=== PATIENT | female | born 1940 | race Caucasian/White ===

== ENCOUNTER 2018-10-31 11:48 | Inpatient (IN) | payer MEDICARE, BC ==
--- NOTE | 2018-10-31 12:14 | EDM.PDOC ---
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 Troponin was at he clinic 0.02. Pt received at the clinic a full ASA. Pt rated her CP as 2/10 on arrival to the ED. Her pain was mainly located at her left upper back. No Trauma. Pt's baseline BP is 150/65. No N/V/D no light headed no other No diaphoresis on arrival to the ed. No other acute med issues. BP 132/42 RR 20 Pulse ox 97% on RA Pulse 63 Temp 36.8 Onset Date: 10/31/18 Onset Time: 07:00 Duration: Hour(s):, Intermittent Location: Reports: Chest Quality: Reports: Ache, Burning, Dull Severity: Moderate Improves with: Reports: Rest Worsens with: Reports: None Context: Reports: Other (CAD) Associated Symptoms: Reports: Chest Pain (left upper back) Treatments PRIZE COORDINATOR: Reports: Aspirin Midsternal chest & L upper back Pain Score (Numeric/FACES): 2 - Related Data Allergies Allergy/AdvReac Type Severity Reaction Status Date / Time JOLENE Inhibitors Allergy Wheezing Verified 10/31/18 16:31 alcohol Allergy Nausea Verified 10/31/18 16:31 amlodipine [From Norvasc] Allergy Edema Verified 10/31/18 16:31 bee venom protein (honey bee) Allergy Other Verified 10/31/18 16:31 brimonidine Allergy Other Verified 10/31/18 16:31 cephalexin [From Keflex] Allergy Rash Verified 10/31/18 16:31 hydrocodone Allergy Other Verified 10/31/18 16:31 iodine Allergy Cannot Verified 10/31/18 16:31 Remember nadolol Allergy Wheezing Verified 10/31/18 16:31 olmesartan [From Benicar] Allergy Hives Verified 10/31/18 16:31 prednisone Allergy Edema Verified 10/31/18 16:31 Sulfa (Sulfonamide Allergy Rash Verified 10/31/18 16:31 Antibiotics) triamcinolone [From Nasacort] Allergy Cannot Verified 10/31/18 16:31 Remember Home Meds: Home Meds Albuterol Sulfate [Albuterol Sulfate Hfa] 2 puff IH QID PRN 10/31/18 [History] Diltiazem HCl [Cartia Xt] 180 mg PO BID 10/31/18 [History] Furosemide 40 mg PO DAILY 10/31/18 [History] Isosorbide Mononitrate [Imdur] 60 mg PO DAILY 10/31/18 [History] Levocetirizine Dihydrochloride 5 mg PO BEDTIME 10/31/18 [History] Levothyroxine 75 mcg PO ACBREAKFAST 10/31/18 [History] Lutein/Minerals/Vit A,C & E [Ocuvite] 2 tab PO DAILY 10/31/18 [History] Nitroglycerin [Nitrostat] 0.4 mg SL ASDIRECTED PRN 10/31/18 [History] diphenhydrAMINE [Benadryl] 25 mg PO Q4H PRN 10/31/18 [History] hydrALAZINE [Apresoline] 50 mg PO BID 10/31/18 [History] ED ROS GENERAL - Review of Systems Review Of Systems: See Below Constitutional: Reports: No Symptoms HEENT: Reports: No Symptoms Respiratory: Reports: No Symptoms Cardiovascular: Reports: Chest Pain Endocrine: Reports: No Symptoms GI/Abdominal: Reports: No Symptoms : Reports: No Symptoms Musculoskeletal: Reports: Back Pain Skin: Reports: No Symptoms Neurological: Reports: No Symptoms Psychiatric: Reports: No Symptoms Hematologic/Lymphatic: Reports: No Symptoms Immunologic: Reports: No Symptoms ED EXAM, GENERAL - Physical Exam Exam: See Below Exam Limited By: No Limitations General Appearance: Alert, WD/WN, Mild Distress Eye Exam: Bilateral Eye: Normal Inspection Ears: Normal External Exam Ear Exam: Bilateral Ear: Auricle Normal Nose: Normal Inspection, Normal Mucosa, No Blood Throat/Mouth: Normal Lips, Normal Voice, No Airway Compromise Head: Atraumatic, Normocephalic Neck: Normal Inspection, Supple, Non-Tender, Full Range of Motion Respiratory/Chest: No Respiratory Distress, Decreased Breath Sounds (poor isp effort) Cardiovascular: Normal Peripheral Pulses, Regular Rate, Rhythm, No JVD Peripheral Pulses: 1+: Brachial (L) GI/Abdominal: Normal Bowel Sounds, Soft, Non-Tender, No Organomegaly, No Abnormal Bruit, No Mass, Pelvis Stable (Female) Exam: Deferred Rectal (Female) Exam: Deferred Back Exam: Other (kyphosis ) Extremities: Normal Inspection, Normal Range of Motion, Non-Tender Neurological: Alert, Oriented, CN II-XII Intact, Normal Cognition Psychiatric: Normal Affect, Normal Mood Skin Exam: Warm, Dry Lymphatic: No Adenopathy EKG INTERPRETATION EKG Date: 10/31/18 Time: 11:55 Rhythm: NSR Rate (Beats/Min): 74 [place]: Normal P-Wave: Present QRS: Normal ST-T: Depressed (inf lat leads, not new) QT: Normal Comparison: Change From Previous EKG (from 2017) Course - Vital Signs Text/Narrative:: 78 y.o.w.f with a H/O CAD, Fixed Hiatal Hernia, 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 Troponin was at he clinic 0.02. Pt received at the clinic a full ASA. Pt rated her CP as 2/10 on arrival to the ED. Her pain was mainly located at her left upper back. No Trauma. Pt's baseline BP is 150/65. No N/V/D no light headed no other No diaphoresis on arrival to the ed. No other acute med issues. BP 132/42 RR 20 Pulse ox 97% on RA Pulse 63 Temp 36.8 PE: WNWD WD F in no acute discomfort C/P 2/10 no diaphoresis Imaging: CXR 2 views: Enlarged heart, fixed hiatal hernia (?), COPD,CHF minimal , as per RAD. Angio Chest: NO PE, mild enlarged heart, fixed hiatal hernia. Labs" D Dimer 0.69 Troponin 0.02 initially and 3 hours later. CBC nl Cr. 1.3 GFR 40 Impression: Chest pain, Fixed Hiatal Hernia, back pain Tx: ASA, Nitropatch Reexam: Improved 3.50 pm Consultation: Dr. Ny, Hospitalist: Accepted pt for admission Last Recorded V/S: Last Vital Signs Temp 36.6 C 11/01/18 04:00 Pulse 71 11/01/18 04:00 Resp 16 11/01/18 04:00 BP 138/53 L 11/01/18 04:00 Pulse Ox 93 L 11/01/18 04:36 - Orders/Labs/Meds Orders: Active Orders 24 hr Category Date Time Status EKG Documentation Completion [RC] ASDIRECTED Care 10/31/18 14:25 Active Ang Chest [CT] Stat Exams 10/31/18 14:30 Taken Sodium Chloride 0.9% [Saline Flush] Med 10/31/18 12:56 Active 10 ml FLUSH ASDIRECTED PRN Peripheral IV Insertion Adult [OM.PC] Routine Oth 10/31/18 12:56 Ordered EKG 12 Lead [EK] Routine Ther 10/31/18 12:05 Ordered EKG 12 Lead [EK] Routine Ther 10/31/18 14:25 Ordered Medication Orders Albuterol/Ipratropium (Duoneb 3.0-0.5 Mg/3 Ml) 3 ml NEB Q8H REYNA Last Admin: 11/01/18 04:17 Dose: 3 ml Admin: 10/31/18 21:15 Dose: 3 ml Albuterol/Ipratropium (Duoneb 3.0-0.5 Mg/3 Ml) 3 ml NEB Q4H PRN PRN Reason: Shortness of Breath Diltiazem HCl (Cardizem Cd) 180 mg PO BID [facility] Last Admin: 10/31/18 21:19 Dose: 180 mg Furosemide (Lasix) 40 mg PO DAILY [facility] Hydralazine HCl (Apresoline) 50 mg PO BID [facility] Last Admin: 10/31/18 21:19 Dose: Not Given Levothyroxine Sodium (Levothyroxine) 75 mcg PO ACBREAKFAST [facility] Morphine Sulfate (Morphine) 1 mg IVPUSH Q4H PRN PRN Reason: Chest Pain Non-Formulary Medication (Levocetirizine Dihydrochloride [Levocetirizine Dihydrochloride]) 5 mg PO BEDTIME [facility] Pantoprazole Sodium (Protonix Iv) 40 mg IVPUSH BEDTIME [facility] Last Admin: 10/31/18 21:20 Dose: 40 mg Sodium Chloride (Saline Flush) 10 ml FLUSH ASDIRECTED PRN PRN Reason: Keep Vein Open Last Admin: 10/31/18 21:34 Dose: 10 ml Admin: 10/31/18 12:50 Dose: 10 ml Vit C/Vit E/Zinc/Copper/Lutein (Ocuvite Lutein) 2 each PO DAILY REYNA Labs: Laboratory Tests 10/31/18 10/31/18 10/31/18 Range/Units 12:35 12:35 12:35 WBC 9.1 (4.5-12.0) X10-3/uL RBC 4.82 (3.23-5.20) x10(6)uL Hgb 14.2 (11.5-15.5) g/dL Hct 42.4 (30.0-51.3) % MCV 87.9 (80-96) fL MCH 29.5 (27.7-33.6) pg MCHC 33.6 (32.2-35.4) g/dL RDW 13.6 (11.5-15.5) % Plt Count 339 (125-369) X10(3)uL MPV 7.8 (7.4-10.4) fL Neut % (Auto) 79.9 (46-82) % Lymph % (Auto) 13.3 (13-37) % [place] % (Auto) 5.5 (4-12) % Eos % (Auto) 1 (1.0-5.0) % Baso % (Auto) 0 (0-2) % Neut # (Auto) 7.3 (1.6-8.3) # Lymph # (Auto) 1.2 (0.6-5.0) # [place] # (Auto) 0.5 (0.0-1.3) # Eos # (Auto) 0.1 (0.0-0.8) # Baso # (Auto) 0.0 (0.0-0.2) # PT (8.7-11.1) INR (0.89-1.13) D-Dimer, Quantitative 0.61 H (0.0-0.59) mg/LFEU Sodium 142 (135-145) mmol/L Potassium 3.6 (3.5-5.3) mmol/L Chloride 103 (100-110) mmol/L Carbon Dioxide 28 (21-32) mmol/L BUN 21 H (7-18) mg/dL Creatinine 1.3 H (0.55-1.02) mg/dL Est Cr Clr Drug Dosing 26.03 mL/min Estimated GFR (MDRD) 40 L (>60) BUN/Creatinine Ratio 16.2 (9-20) Glucose 104 (80-116) mg/dL Calcium 9.4 (8.6-10.2) mg/dL Creatine Kinase 124 (60-160) IU/L Troponin I (<0.017-0.056) ng/mL Urine Color (YELLOW) Urine Appearance (CLEAR) Urine pH (5.0-6.5) Ur Specific [place] (1.010-1.025) Urine Protein (NEGATIVE) mg/dL Urine Glucose (UA) (NORMAL) mg/dL Urine Ketones (NEGATIVE) mg/dL Urine Occult Blood (NEGATIVE) Urine Nitrite (NEGATIVE) Urine Bilirubin (NEGATIVE) Urine Urobilinogen (NEGATIVE) mg/dL Ur Leukocyte Esterase (NEGATIVE) Urine RBC (0-5) Urine WBC (0-5) Ur Squamous Epith Cells (NS,R,O) Urine Bacteria (NS) Hyaline Casts (NS) 10/31/18 10/31/18 10/31/18 Range/Units 13:30 14:28 14:28 WBC (4.5-12.0) X10-3/uL RBC (3.23-5.20) x10(6)uL Hgb (11.5-15.5) g/dL Hct (30.0-51.3) % MCV (80-96) fL MCH (27.7-33.6) pg MCHC (32.2-35.4) g/dL RDW (11.5-15.5) % Plt Count (125-369) X10(3)uL MPV (7.4-10.4) fL Neut % (Auto) (46-82) % Lymph % (Auto) (13-37) % [place] % (Auto) (4-12) % Eos % (Auto) (1.0-5.0) % Baso % (Auto) (0-2) % Neut # (Auto) (1.6-8.3) # Lymph # (Auto) (0.6-5.0) # Kern # (Auto) (0.0-1.3) # Eos # (Auto) (0.0-0.8) # Baso # (Auto) (0.0-0.2) # PT 9.3 (8.7-11.1) INR 0.96 (0.89-1.13) D-Dimer, Quantitative (0.0-0.59) mg/LFEU Sodium (135-145) mmol/L Potassium (3.5-5.3) mmol/L Chloride (100-110) mmol/L Carbon Dioxide (21-32) mmol/L BUN (7-18) mg/dL Creatinine (0.55-1.02) mg/dL Est Cr Clr Drug Dosing mL/min Estimated GFR (MDRD) (>60) BUN/Creatinine Ratio (9-20) Glucose (80-116) mg/dL Calcium (8.6-10.2) mg/dL Creatine Kinase (60-160) IU/L Troponin I 0.020 (<0.017-0.056) ng/mL Urine Color Yellow (YELLOW) Urine Appearance Clear (CLEAR) Urine pH 6.0 (5.0-6.5) Ur Specific [place] 1.010 (1.010-1.025) Urine Protein Negative (NEGATIVE) mg/dL Urine Glucose (UA) Normal (NORMAL) mg/dL Urine Ketones Negative (NEGATIVE) mg/dL Urine Occult Blood Negative (NEGATIVE) Urine Nitrite Negative (NEGATIVE) Urine Bilirubin Negative (NEGATIVE) Urine Urobilinogen Normal (NEGATIVE) mg/dL Ur Leukocyte Esterase Negative (NEGATIVE) Urine RBC 0-5 (0-5) Urine WBC 0-5 (0-5) Ur Squamous Epith Cells Few H (NS,R,O) Urine Bacteria Few H (NS) Hyaline Casts Occasional H (NS) Meds: Medications Generic Name Dose Route Start Last Admin Trade Name Freq PRN Reason Stop Dose Admin Albuterol/Ipratropium 3 ml 10/31/18 20:30 11/01/18 04:17 Duoneb 3.0-0.5 Mg/3 Ml NEB 3 ml Q8H REYNA Administration Albuterol/Ipratropium 3 ml 10/31/18 20:41 Duoneb 3.0-0.5 Mg/3 Ml NEB Q4H PRN Shortness of Breath Diltiazem HCl 180 mg 10/31/18 21:00 10/31/18 21:19 Cardizem Cd PO 180 mg BID REYNA Administration Furosemide 40 mg 11/01/18 09:00 Lasix PO DAILY REYNA Hydralazine HCl 50 mg 10/31/18 21:00 10/31/18 21:19 Apresoline PO Not Given BID REYNA Levothyroxine Sodium 75 mcg 11/01/18 07:30 Levothyroxine PO ACBREAKFAST REYNA Morphine Sulfate 1 mg 10/31/18 20:23 Morphine IVPUSH Q4H PRN Chest Pain Non-Formulary Medication 5 mg 10/31/18 21:00 Levocetirizine Dihydrochloride [Levocetirizine Dihydrochloride] PO BEDTIME REYNA Pantoprazole Sodium 40 mg 10/31/18 21:00 10/31/18 21:20 Protonix Iv IVPUSH 40 mg BEDTIME REYNA Administration Sodium Chloride 10 ml 10/31/18 12:56 10/31/18 21:34 Saline Flush FLUSH 10 ml ASDIRECTED PRN Administration Keep Vein Open Vit C/Vit E/Zinc/Copper/Lutein 2 each 11/01/18 09:00 Ocuvite Lutein PO DAILY REYNA Discontinued Medications Generic Name Dose Route Start Last Admin Trade Name Freq PRN Reason Stop Dose Admin Diltiazem HCl Confirm 10/31/18 20:58 10/31/18 21:19 Cardizem Cd Administered 10/31/18 20:59 Not Given Dose 180 mg .ROUTE .STK-MED ONE Hydralazine HCl Confirm 10/31/18 20:58 10/31/18 21:16 Apresoline Administered 10/31/18 20:59 50 mg Dose Administration 50 mg .ROUTE .STK-MED ONE Iopamidol 75 ml 10/31/18 14:35 10/31/18 14:51 Isovue-370 (76%) IV 10/31/18 14:36 62 ml ASDIRECTED ONE Administration Ketorolac Tromethamine 15 mg 10/31/18 12:38 10/31/18 12:50 Toradol IVPUSH 10/31/18 12:39 15 mg ONETIME ONE Administration Nitroglycerin 0.2 mg 10/31/18 14:14 10/31/18 14:43 Nitro-Dur 0.2 Mg/Hr TRDERM 10/31/18 14:15 0.2 mg ONETIME ONE Administration Departure - Departure Time of Disposition: 19:00 Disposition: Admitted As Inpatient 67 Condition: Fair Clinical Impression: Chest pain Qualifiers: Chest pain type: intercostal pain Qualified Code(s): R07.82 - Intercostal pain - My Orders Last 24 Hours: My Active Orders 10/31/18 12:05 EKG 12 Lead [EK] Routine 10/31/18 12:56 Sodium Chloride 0.9% [Saline Flush] 10 ml FLUSH ASDIRECTED PRN Peripheral IV Insertion Adult [OM.PC] Routine 10/31/18 14:25 EKG Documentation Completion [RC] ASDIRECTED EKG 12 Lead [EK] Routine 10/31/18 14:30 Ang Chest [CT] Stat - Assessment/Plan Last 24 Hours: My Active Orders 10/31/18 12:05 EKG 12 Lead [EK] Routine 10/31/18 12:56 Sodium Chloride 0.9% [Saline Flush] 10 ml FLUSH ASDIRECTED PRN Peripheral IV Insertion Adult [OM.PC] Routine 10/31/18 14:25 EKG Documentation Completion [RC] ASDIRECTED EKG 12 Lead [EK] Routine 10/31/18 14:30 Ang Chest [CT] Stat
[2018-10-31] MEDS ORDERED: Ketorolac 30 MG/ML SDV IVPUSH ONE (12:38)
[2018-10-31] MEDS: Sodium Chloride 0.9% 10 ML Syringe FLUSH PRN ×2 (12:50→21:34)
[2018-10-31] MEDS ORDERED: Nitroglycerin 0.2 MG/HR Transdermal Patch TRDERM ONE (14:14)
[2018-10-31] MEDS ORDERED: Iopamidol 755 Mg/ML 75 ML Bottle IV ONE (14:35)
--- NOTE | 2018-10-31 15:06 | CR ---
INDICATION: Chest pain. CHEST: PA and lateral views of the chest were obtained 10/31/18 and compared with 12/09/10 and 09/02/08. The heart appears mildly enlarged with mild LVE. Evidence of previous median sternotomy is again noted. The aorta is tortuous with calcification in the arch and descending portion. Degenerative changes are noted of moderate degree at the lower thoracic spine level. Flattened diaphragm leaves, prominent AP diameter, and hyperaeration all suggest COPD. Upper lung field pulmonary vasculature is minimally prominent, raising question of minimal or early CHF. An active infiltrate or effusion was not identified. There is an appearance of a mass behind the heart, which may be on the basis of a moderate to moderately large sized fixed hiatal hernia - correlate clinically , as other etiology cannot be excluded. IMPRESSION: 1. No acute process. 2. ASHD with cardiomegaly - LVE with post median sternotomy change. 3. Probable COPD - correlate clinically. 4. Limited DJD lower thoracic spine. 5. Mass behind the heart, most likely fixed hiatal hernia but cannot exclude aneurysm of the aorta or other mass. MTDD
[2018-10-31] MEDS ORDERED: Morphine 2 MG/ML Syringe IVPUSH PRN (20:23)
--- NOTE | 2018-10-31 20:30 | PCM.HP ---
H&P History of Present Illness - General Date of Service: 10/31/18 Admit Problem/Dx: Admission Diagnosis/Problem Admission Diagnosis/Problem Chest pain Source of Information: Patient History Limitations: Reports: No Limitations - History of Present Illness Initial Comments - Free Text/Narative: Ms. Sanchez is a 78-year-old female with upper back pain. This started this morning ,and is located around the left breast with radiation straight to the left upper back. Sharp pain,and is associated shortness of breath.Nothing seems to help except, nitroglycerin which she got earlier in the clinic today when she saw Dr white. She has a history of coronary artery disease with the CABG 10 years ago. Also endorses Asthma, hypothyroidism and hypertension,all stable. She denies cough fever or chills. No nausea or vomiting. Midsternal chest & L upper back Pain Score (Numeric/FACES): 2 - Related Data Allergies/Adverse Reactions: Allergies Allergy/AdvReac Type Severity Reaction Status Date / Time JOLENE Inhibitors Allergy Wheezing Verified 10/31/18 16:31 alcohol Allergy Nausea Verified 10/31/18 16:31 amlodipine [From Norvasc] Allergy Edema Verified 10/31/18 16:31 bee venom protein (honey bee) Allergy Other Verified 10/31/18 16:31 brimonidine Allergy Other Verified 10/31/18 16:31 cephalexin [From Keflex] Allergy Rash Verified 10/31/18 16:31 hydrocodone Allergy Other Verified 10/31/18 16:31 iodine Allergy Cannot Verified 10/31/18 16:31 Remember nadolol Allergy Wheezing Verified 10/31/18 16:31 olmesartan [From Benicar] Allergy Hives Verified 10/31/18 16:31 prednisone Allergy Edema Verified 10/31/18 16:31 Sulfa (Sulfonamide Allergy Rash Verified 10/31/18 16:31 Antibiotics) triamcinolone [From Nasacort] Allergy Cannot Verified 10/31/18 16:31 Remember Home Medications: Home Meds Albuterol Sulfate [Albuterol Sulfate Hfa] 2 puff IH QID PRN 10/31/18 [History] Diltiazem HCl [Cartia Xt] 180 mg PO BID 10/31/18 [History] Furosemide 40 mg PO DAILY 10/31/18 [History] Isosorbide Mononitrate [Imdur] 60 mg PO DAILY 10/31/18 [History] Levocetirizine Dihydrochloride 5 mg PO BEDTIME 10/31/18 [History] Levothyroxine 75 mcg PO ACBREAKFAST 10/31/18 [History] Lutein/Minerals/Vit A,C & E [Ocuvite] 2 tab PO DAILY 10/31/18 [History] Nitroglycerin [Nitrostat] 0.4 mg SL ASDIRECTED PRN 10/31/18 [History] diphenhydrAMINE [Benadryl] 25 mg PO Q4H PRN 10/31/18 [History] hydrALAZINE [Apresoline] 50 mg PO BID 10/31/18 [History] Past Medical History HEENT History: Reports: Glaucoma, Macular Degeneration, Other (See Below) Other HEENT History: injections into L eye for mac degen. Cardiovascular History: Reports: Bypass, CAD, Hypertension, [place] Other Cardiovascular History: 4 vessel CABG Respiratory History: Reports: Asthma, COPD, Sleep Apnea Other Respiratory History: uses CPAP Gastrointestinal History: Reports: Hiatal Hernia Genitourinary History: Reports: Renal Disease [employer] History: Reports: Other OB/BYN History: Musculoskeletal History: Reports: Arthritis Endocrine/Metabolic History: Reports: Hypothyroidism, Obesity/BMI 30+ Hematologic History: Reports: Blood Transfusion(s) Dermatologic History: Reports: Other (See Below) Other Dermatologic History: chalazioun L upper eyelid. - Infectious Disease History Infectious Disease History: Reports: Chicken Pox, Measles - Past Surgical History HEENT Surgical History: Reports: Adenoidectomy, Cataract Surgery, Tonsillectomy Other HEENT Surgeries/Procedures: bilat cataract Cardiovascular Surgical History: Reports: Coronary Artery Bypass GI Surgical History: Reports: Colonoscopy Female Surgical History: Reports: Section Other Female Surgeries/Procedures: CS x 3 Endocrine Surgical History: Reports: Parathyroidectomy Musculoskeletal Surgical History: Reports: None Social & Family History - Family History Family Medical History: Noncontributory - Tobacco Use Smoking Status *Q: Former Smoker Years of Tobacco use: 45 Used Tobacco, but Quit: Yes Month/Year Tobacco Last Used: 2003 Second Hand Smoke Exposure: No - Caffeine Use Caffeine Use: Reports: Coffee - Recreational Drug Use Recreational Drug Use: No H&P Review of Systems - Review of Systems: Review Of Systems: ROS reveals no pertinent complaints other than HPI. Exam - Exam Exam: See Below - Vital Signs Vital Signs: Last Vital Signs Temp 97.6 F 10/31/18 11:48 Pulse 65 10/31/18 16:00 Resp 18 10/31/18 16:00 BP 181/66 H 10/31/18 16:00 Pulse Ox 94 L 10/31/18 16:06 Weight: 67.857 kg - Exam General: Alert, Oriented, 4 HEENT: PERRLA, Hearing Intact, Mucosa Moist & [place], Nares Patent, Normal Nasal Septum, Posterior Pharynx Clear, Conjunctiva Clear, EOMI, EACs Clear, TMs Clear Neck: Supple, Trachea Midline, 2 Lungs: Clear to Auscultation, Normal Respiratory Effort Cardiovascular: Regular Rate, Regular Rhythm GI/Abdominal Exam: Normal Bowel Sounds, Soft, Non-Tender, No Organomegaly, No Distention, No Abnormal Bruit, No Mass, Pelvis Stable (Female) Exam: Deferred Rectal (Female) Exam: Deferred Back Exam: Normal Inspection, Full Range of Motion, NT Extremities: Normal Inspection, Normal Range of Motion, Non-Tender, No Pedal Edema, Normal Capillary Refill Skin: Warm, Dry, Intact Neurological: Cranial Nerves Intact, Reflexes Equal Bilateral Neuro Extensive - Mental Status: Alert, Oriented x3, Normal Mood/Affect, Normal Cognition Neuro Extensive - Motor, Sensory, Reflexes: CN II-XII Intact, Normal Gait, Normal Reflexes Psychiatric: Alert, Normal Affect, Normal Mood - Patient Data Lab Results Last 24 hrs: Laboratory Results - last 24 hr 10/31/18 10/31/18 10/31/18 Range/Units 12:35 12:35 12:35 WBC 9.1 (4.5-12.0) X10-3/uL RBC 4.82 (3.23-5.20) x10(6)uL Hgb 14.2 (11.5-15.5) g/dL Hct 42.4 (30.0-51.3) % MCV 87.9 (80-96) fL MCH 29.5 (27.7-33.6) pg MCHC 33.6 (32.2-35.4) g/dL RDW 13.6 (11.5-15.5) % Plt Count 339 (125-369) X10(3)uL MPV 7.8 (7.4-10.4) fL Neut % (Auto) 79.9 (46-82) % Lymph % (Auto) 13.3 (13-37) % [place] % (Auto) 5.5 (4-12) % Eos % (Auto) 1 (1.0-5.0) % Baso % (Auto) 0 (0-2) % Neut # (Auto) 7.3 (1.6-8.3) # Lymph # (Auto) 1.2 (0.6-5.0) # Trinity # (Auto) 0.5 (0.0-1.3) # Eos # (Auto) 0.1 (0.0-0.8) # Baso # (Auto) 0.0 (0.0-0.2) # PT (8.7-11.1) INR (0.89-1.13) D-Dimer, Quantitative 0.61 H (0.0-0.59) mg/LFEU Sodium 142 (135-145) mmol/L Potassium 3.6 (3.5-5.3) mmol/L Chloride 103 (100-110) mmol/L Carbon Dioxide 28 (21-32) mmol/L BUN 21 H (7-18) mg/dL Creatinine 1.3 H (0.55-1.02) mg/dL Est Cr Clr Drug Dosing 26.03 mL/min Estimated GFR (MDRD) 40 L (>60) BUN/Creatinine Ratio 16.2 (9-20) Glucose 104 (80-116) mg/dL Calcium 9.4 (8.6-10.2) mg/dL Creatine Kinase 124 (60-160) IU/L Troponin I (<0.017-0.056) ng/mL Urine Color (YELLOW) Urine Appearance (CLEAR) Urine pH (5.0-6.5) Ur Specific [place] (1.010-1.025) Urine Protein (NEGATIVE) mg/dL Urine Glucose (UA) (NORMAL) mg/dL Urine Ketones (NEGATIVE) mg/dL Urine Occult Blood (NEGATIVE) Urine Nitrite (NEGATIVE) Urine Bilirubin (NEGATIVE) Urine Urobilinogen (NEGATIVE) mg/dL Ur Leukocyte Esterase (NEGATIVE) Urine RBC (0-5) Urine WBC (0-5) Ur Squamous Epith Cells (NS,R,O) Urine Bacteria (NS) Hyaline Casts (NS) 10/31/18 10/31/18 10/31/18 Range/Units 13:30 14:28 14:28 WBC (4.5-12.0) X10-3/uL RBC (3.23-5.20) x10(6)uL Hgb (11.5-15.5) g/dL Hct (30.0-51.3) % MCV (80-96) fL MCH (27.7-33.6) pg MCHC (32.2-35.4) g/dL RDW (11.5-15.5) % Plt Count (125-369) X10(3)uL MPV (7.4-10.4) fL Neut % (Auto) (46-82) % Lymph % (Auto) (13-37) % [place] % (Auto) (4-12) % Eos % (Auto) (1.0-5.0) % Baso % (Auto) (0-2) % Neut # (Auto) (1.6-8.3) # Lymph # (Auto) (0.6-5.0) # Trinity # (Auto) (0.0-1.3) # Eos # (Auto) (0.0-0.8) # Baso # (Auto) (0.0-0.2) # PT 9.3 (8.7-11.1) INR 0.96 (0.89-1.13) D-Dimer, Quantitative (0.0-0.59) mg/LFEU Sodium (135-145) mmol/L Potassium (3.5-5.3) mmol/L Chloride (100-110) mmol/L Carbon Dioxide (21-32) mmol/L BUN (7-18) mg/dL Creatinine (0.55-1.02) mg/dL Est Cr Clr Drug Dosing mL/min Estimated GFR (MDRD) (>60) BUN/Creatinine Ratio (9-20) Glucose (80-116) mg/dL Calcium (8.6-10.2) mg/dL Creatine Kinase (60-160) IU/L Troponin I 0.020 (<0.017-0.056) ng/mL Urine Color Yellow (YELLOW) Urine Appearance Clear (CLEAR) Urine pH 6.0 (5.0-6.5) Ur Specific [place] 1.010 (1.010-1.025) Urine Protein Negative (NEGATIVE) mg/dL Urine Glucose (UA) Normal (NORMAL) mg/dL Urine Ketones Negative (NEGATIVE) mg/dL Urine Occult Blood Negative (NEGATIVE) Urine Nitrite Negative (NEGATIVE) Urine Bilirubin Negative (NEGATIVE) Urine Urobilinogen Normal (NEGATIVE) mg/dL Ur Leukocyte Esterase Negative (NEGATIVE) Urine RBC 0-5 (0-5) Urine WBC 0-5 (0-5) Ur Squamous Epith Cells Few H (NS,R,O) Urine Bacteria Few H (NS) Hyaline Casts Occasional H (NS) Result Diagrams: 10/31/18 12:35 10/31/18 12:35 EKG INTERPRETATION Rhythm: NSR - Problem List (1) Chest pain SNOMED Code(s): 81915602 ICD Code: R07.9 - CHEST PAIN, UNSPECIFIED Status: Acute Current Visit: Yes Qualifiers: Chest pain type: intercostal pain Qualified Code(s): R07.82 - Intercostal pain (2) GERD (gastroesophageal reflux disease) SNOMED Code(s): 975130130 ICD Code: K21.9 - GASTRO-ESOPHAGEAL REFLUX DISEASE WITHOUT ESOPHAGITIS Status: Acute Current Visit: Yes Qualifiers: Esophagitis presence: without esophagitis Qualified Code(s): K21.9 - Gastro -esophageal reflux disease without esophagitis (3) Asthma SNOMED Code(s): 711607235 ICD Code: J45.909 - UNSPECIFIED ASTHMA, UNCOMPLICATED Status: Acute Current Visit: Yes (4) HTN (hypertension) SNOMED Code(s): 86232159 ICD Code: I10 - ESSENTIAL (PRIMARY) HYPERTENSION Status: Chronic Current Visit: Yes Qualifiers: Hypertension type: essential hypertension Qualified Code(s): I10 - Essential (primary) hypertension (5) Hypothyroidism SNOMED Code(s): 80137008 ICD Code: E03.9 - HYPOTHYROIDISM, UNSPECIFIED Status: Chronic Current Visit: Yes (6) HLD (hyperlipidemia) SNOMED Code(s): 64407230 ICD Code: E78.5 - HYPERLIPIDEMIA, UNSPECIFIED Status: Acute Current Visit : Yes Qualifiers: Hyperlipidemia type: unspecified Qualified Code(s): E78.5 - Hyperlipidemia , unspecified Problem List Initiated/Reviewed/Updated: Yes Orders Last 24hrs: Active Orders 24 hr Category Date Time Status Patient Status [ADT] Routine ADT 10/31/18 16:06 Active Cardiac Monitoring [RC] INTERMITTENT Care 10/31/18 16:08 Active EKG Documentation Completion [RC] ASDIRECTED Care 10/31/18 12:06 Active EKG Documentation Completion [RC] ASDIRECTED Care 10/31/18 14:25 Active EKG Documentation Completion [RC] ASDIRECTED Care 10/31/18 20:22 Ordered Oxygen Therapy [RC] .PRN Care 10/31/18 16:06 Active RT Aerosol Therapy [RC] ASDIRECTED Care 10/31/18 20:22 Ordered VTE/DVT Education [RC] Per Unit Routine Care 10/31/18 16:06 Active Vital Signs [RC] 00,04,08,12,16,20 Care 10/31/18 16:06 Active Heart Healthy Diet [DIET] Diet 10/31/18 Breakfast Active Ang Chest [CT] Stat Exams 10/31/18 14:30 Taken BASIC METABOLIC PANEL,BMP [CHEM] AM Lab 11/01/18 05:11 Ordered CBC WITH AUTO DIFF [HEME] AM Lab 11/01/18 05:11 Ordered TROPONIN I [CHEM] AM Lab 11/01/18 05:11 Ordered Albuterol/Ipratropium [DuoNeb 3.0-0.5 MG/3 ML] Med 10/31/18 20:30 Ordered 3 ml NEB Q8H Diltiazem [Cardizem CD] Med 10/31/18 21:00 Ordered 180 mg PO BID Furosemide [Lasix] Med 11/01/18 09:00 Ordered 40 mg PO DAILY Levocetirizine Dihydrochloride [Levocetirizine Med 10/31/18 21:00 Ordered Dihydrochloride] 5 mg PO BEDTIME Levothyroxine Med 11/01/18 07:30 Ordered 75 mcg PO ACBREAKFAST Lutein/Minerals/Vit A,C & E [Ocuvite] Med 11/01/18 09:00 Ordered 2 tab PO DAILY Morphine Med 10/31/18 20:23 Ordered 1 mg IVPUSH Q4H PRN Pantoprazole [ProTONIX IV] Med 10/31/18 21:00 Ordered 40 mg IVPUSH BEDTIME Sodium Chloride 0.9% [Saline Flush] Med 10/31/18 12:56 Active 10 ml FLUSH ASDIRECTED PRN hydrALAZINE [Apresoline] Med 10/31/18 21:00 Ordered 50 mg PO BID Peripheral IV Insertion Adult [OM.PC] Routine Oth 10/31/18 12:56 Ordered Resuscitation Status Routine Resus Stat 10/31/18 16:06 Ordered EKG 12 Lead [EK] AM Ther 11/01/18 05:11 Ordered EKG 12 Lead [EK] Routine Ther 10/31/18 12:05 Ordered EKG 12 Lead [EK] Routine Ther 10/31/18 14:25 Ordered Medication Orders Albuterol/Ipratropium (Duoneb 3.0-0.5 Mg/3 Ml) 3 ml NEB Q8H REYNA Diltiazem HCl (Cardizem Cd) 180 mg PO BID REYNA Furosemide (Lasix) 40 mg PO DAILY REYNA Hydralazine HCl (Apresoline) 50 mg PO BID REYNA Levothyroxine Sodium (Levothyroxine) 75 mcg PO ACBREAKFAST REYNA Morphine Sulfate (Morphine) 1 mg IVPUSH Q4H PRN PRN Reason: Chest Pain Non-Formulary Medication (Levocetirizine Dihydrochloride [Levocetirizine Dihydrochloride]) 5 mg PO BEDTIME REYNA Non-Formulary Medication (Lutein/Minerals/Vit A,C & E [Ocuvite]) 2 tab PO DAILY REYNA Pantoprazole Sodium (Protonix Iv) 40 mg IVPUSH BEDTIME REYNA Sodium Chloride (Saline Flush) 10 ml FLUSH ASDIRECTED PRN PRN Reason: Keep Vein Open Last Admin: 10/31/18 12:50 Dose: 10 ml Assessment/Plan Comment:: Her CT was negative for PE. The pain is reproducible on palpation of the chest wall and upper back. But she also shortness of breath. The etiology at this time is unclear. We'll repeat labs in the morning, start DuoNeb when necessary and ketorolac as needed for pain.
[2018-10-31] MEDS ORDERED: Albuterol/Ipratropium 3.0-0.5 MG/3 ML Neb Soln NEB PRN (20:41)
[2018-10-31] MEDS ORDERED: hydrALAZINE 25 MG Tab ONE (20:58)
[2018-10-31] MEDS ORDERED: Diltiazem 180 MG Cap.CD ONE (20:58)
[2018-10-31] MEDS: Albuterol/Ipratropium 3.0-0.5 MG/3 ML Neb Soln NEB SCH (21:15)
[2018-10-31] MEDS: Diltiazem 180 MG Cap.CD PO SCH (21:19)
[2018-10-31] MEDS: hydrALAZINE 50 MG Tab PO SCH (21:19)
[2018-10-31] MEDS: Pantoprazole 40 MG Vial IVPUSH SCH (21:20)
[2018-11-01] MEDS: Albuterol/Ipratropium 3.0-0.5 MG/3 ML Neb Soln NEB SCH ×3 (04:17→20:29)
[2018-11-01] MEDS: Levothyroxine 75 MCG Tab PO SCH (07:35)
--- NOTE | 2018-11-01 08:25 | CT ---
INDICATION: Chest pain with D-dimer elevated. COMPUTERIZED TOMOGRAPHY ANGIOGRAPHY OF THE CHEST WITH CONTRAST: Spiral 3.75 mm axial sections were obtained through the chest with sagittal and coronal reconstructions, utilizing 62 mL Isovue 370 at 3 mL/second, 10/31/18 - no comparisons. Total exam DLP = 348.65 mGy-cm. Calcifications are noted in brachiocephalic vessels, the arch of the aorta, the ascending thoracic aorta, and minimally in coronary arteries. The heart was not enlarged. No pericardial effusion was seen. No mediastinal masses were identified. Mediastinal lymphadenopathy is mild and nonspecific. A moderate sized fixed hiatal hernia is noted. Calcifications are also noted in the splenic artery, origin of celiac axis, superior mesenteric artery, and renal arteries, especially on the left. There are some heavy markings at the lingula, suggesting fibrosis or possibly an area of subsegmental atelectasis. A definite active infiltrate or effusion was not identified with very minimal fibrotic appearing changes at the lung base , right and left, more prominent on the left. Contrast density in the pulmonary arteries is less than ideal. However, no definite filling defects to suggest pulmonary emboli could be identified. IMPRESSION: 1. No evidence of pulmonary emboli or other definite acute process. 2. Moderately large fixed hiatal hernia. 3. ASHD. 4. ASD. 5. Minimal pulmonary fibrosis. 6. Hypertrophic degenerative changes and disk disease lower thoracic spine. Report was called to Dr. Thomas at 1515 hours on 10/31/18. [facility]
--- NOTE | 2018-11-01 08:59 | PCM.PN ---
- General Info Date of Service: 11/01/18 Subjective Update: Still has some pain in the upper back,epigastrium Functional Status: Reports: Pain Controlled - Review of Systems General: Reports: No Symptoms HEENT: Reports: No Symptoms Pulmonary: Reports: No Symptoms Cardiovascular: Reports: Chest Pain Gastrointestinal: Reports: Abdominal Pain Genitourinary: Reports: No Symptoms - Patient Data Vitals - Most Recent: Last Vital Signs Temp 98.1 F 11/01/18 07:50 Pulse 65 11/01/18 07:50 Resp 18 11/01/18 07:50 BP 135/62 11/01/18 07:50 Pulse Ox 94 L 11/01/18 07:50 Weight - Most Recent: 67.857 kg Lab Results Last 24 Hours: Laboratory Results - last 24 hr 10/31/18 10/31/18 10/31/18 Range/Units 12:35 12:35 12:35 WBC 9.1 (4.5-12.0) X10-3/uL RBC 4.82 (3.23-5.20) x10(6)uL Hgb 14.2 (11.5-15.5) g/dL Hct 42.4 (30.0-51.3) % MCV 87.9 (80-96) fL MCH 29.5 (27.7-33.6) pg MCHC 33.6 (32.2-35.4) g/dL RDW 13.6 (11.5-15.5) % Plt Count 339 (125-369) X10(3)uL MPV 7.8 (7.4-10.4) fL Neut % (Auto) 79.9 (46-82) % Lymph % (Auto) 13.3 (13-37) % Whiteside % (Auto) 5.5 (4-12) % Eos % (Auto) 1 (1.0-5.0) % Baso % (Auto) 0 (0-2) % Neut # (Auto) 7.3 (1.6-8.3) # Lymph # (Auto) 1.2 (0.6-5.0) # Whiteside # (Auto) 0.5 (0.0-1.3) # Eos # (Auto) 0.1 (0.0-0.8) # Baso # (Auto) 0.0 (0.0-0.2) # PT (8.7-11.1) INR (0.89-1.13) D-Dimer, Quantitative 0.61 H (0.0-0.59) mg/LFEU Sodium 142 (135-145) mmol/L Potassium 3.6 (3.5-5.3) mmol/L Chloride 103 (100-110) mmol/L Carbon Dioxide 28 (21-32) mmol/L BUN 21 H (7-18) mg/dL Creatinine 1.3 H (0.55-1.02) mg/dL Est Cr Clr Drug Dosing 26.03 mL/min Estimated GFR (MDRD) 40 L (>60) BUN/Creatinine Ratio 16.2 (9-20) Glucose 104 (80-116) mg/dL Calcium 9.4 (8.6-10.2) mg/dL Creatine Kinase 124 (60-160) IU/L Troponin I (<0.017-0.056) ng/mL NT-Pro-B Natriuret Pep (<=450) pg/mL Urine Color (YELLOW) Urine Appearance (CLEAR) Urine pH (5.0-6.5) Ur Specific [place] (1.010-1.025) Urine Protein (NEGATIVE) mg/dL Urine Glucose (UA) (NORMAL) mg/dL Urine Ketones (NEGATIVE) mg/dL Urine Occult Blood (NEGATIVE) Urine Nitrite (NEGATIVE) Urine Bilirubin (NEGATIVE) Urine Urobilinogen (NEGATIVE) mg/dL Ur Leukocyte Esterase (NEGATIVE) Urine RBC (0-5) Urine WBC (0-5) Ur Squamous Epith Cells (NS,R,O) Urine Bacteria (NS) Hyaline Casts (NS) 10/31/18 10/31/18 10/31/18 Range/Units 13:30 14:28 14:28 WBC (4.5-12.0) X10-3/uL RBC (3.23-5.20) x10(6)uL Hgb (11.5-15.5) g/dL Hct (30.0-51.3) % MCV (80-96) fL MCH (27.7-33.6) pg MCHC (32.2-35.4) g/dL RDW (11.5-15.5) % Plt Count (125-369) X10(3)uL MPV (7.4-10.4) fL Neut % (Auto) (46-82) % Lymph % (Auto) (13-37) % Whiteside % (Auto) (4-12) % Eos % (Auto) (1.0-5.0) % Baso % (Auto) (0-2) % Neut # (Auto) (1.6-8.3) # Lymph # (Auto) (0.6-5.0) # Whiteside # (Auto) (0.0-1.3) # Eos # (Auto) (0.0-0.8) # Baso # (Auto) (0.0-0.2) # PT 9.3 (8.7-11.1) INR 0.96 (0.89-1.13) D-Dimer, Quantitative (0.0-0.59) mg/LFEU Sodium (135-145) mmol/L Potassium (3.5-5.3) mmol/L Chloride (100-110) mmol/L Carbon Dioxide (21-32) mmol/L BUN (7-18) mg/dL Creatinine (0.55-1.02) mg/dL Est Cr Clr Drug Dosing mL/min Estimated GFR (MDRD) (>60) BUN/Creatinine Ratio (9-20) Glucose (80-116) mg/dL Calcium (8.6-10.2) mg/dL Creatine Kinase (60-160) IU/L Troponin I 0.020 (<0.017-0.056) ng/mL NT-Pro-B Natriuret Pep (<=450) pg/mL Urine Color Yellow (YELLOW) Urine Appearance Clear (CLEAR) Urine pH 6.0 (5.0-6.5) Ur Specific [place] 1.010 (1.010-1.025) Urine Protein Negative (NEGATIVE) mg/dL Urine Glucose (UA) Normal (NORMAL) mg/dL Urine Ketones Negative (NEGATIVE) mg/dL Urine Occult Blood Negative (NEGATIVE) Urine Nitrite Negative (NEGATIVE) Urine Bilirubin Negative (NEGATIVE) Urine Urobilinogen Normal (NEGATIVE) mg/dL Ur Leukocyte Esterase Negative (NEGATIVE) Urine RBC 0-5 (0-5) Urine WBC 0-5 (0-5) Ur Squamous Epith Cells Few H (NS,R,O) Urine Bacteria Few H (NS) Hyaline Casts Occasional H (NS) 11/01/18 11/01/18 11/01/18 Range/Units 06:02 06:02 06:02 WBC 6.9 (4.5-12.0) X10-3/uL RBC 3.74 (3.23-5.20) x10(6)uL Hgb 11.6 (11.5-15.5) g/dL Hct 33.6 (30.0-51.3) % MCV 90.0 (80-96) fL MCH 31.1 (27.7-33.6) pg MCHC 34.6 (32.2-35.4) g/dL RDW 13.5 (11.5-15.5) % Plt Count 251 (125-369) X10(3)uL MPV 7.9 (7.4-10.4) fL Neut % (Auto) 60.4 (46-82) % Lymph % (Auto) 27.2 (13-37) % [place]ites[place] % (Auto) 9.5 (4-12) % Eos % (Auto) 2 (1.0-5.0) % Baso % (Auto) 1 (0-2) % Neut # (Auto) 4.1 (1.6-8.3) # Lymph # (Auto) 1.9 (0.6-5.0) # Whiteside # (Auto) 0.7 (0.0-1.3) # Eos # (Auto) 0.2 (0.0-0.8) # Baso # (Auto) 0.0 (0.0-0.2) # PT (8.7-11.1) INR (0.89-1.13) D-Dimer, Quantitative (0.0-0.59) mg/LFEU Sodium 141 (135-145) mmol/L Potassium 3.0 L (3.5-5.3) mmol/L Chloride 104 (100-110) mmol/L Carbon Dioxide 29 (21-32) mmol/L BUN 23 H (7-18) mg/dL Creatinine 1.3 H (0.55-1.02) mg/dL Est Cr Clr Drug Dosing 26.03 mL/min Estimated GFR (MDRD) 40 L (>60) BUN/Creatinine Ratio 17.7 (9-20) Glucose 103 (80-116) mg/dL Calcium 8.9 (8.6-10.2) mg/dL Creatine Kinase (60-160) IU/L Troponin I 0.029 (<0.017-0.056) ng/mL NT-Pro-B Natriuret Pep 401 (<=450) pg/mL Urine Color (YELLOW) Urine Appearance (CLEAR) Urine pH (5.0-6.5) Ur Specific [place] (1.010-1.025) Urine Protein (NEGATIVE) mg/dL Urine Glucose (UA) (NORMAL) mg/dL Urine Ketones (NEGATIVE) mg/dL Urine Occult Blood (NEGATIVE) Urine Nitrite (NEGATIVE) Urine Bilirubin (NEGATIVE) Urine Urobilinogen (NEGATIVE) mg/dL Ur Leukocyte Esterase (NEGATIVE) Urine RBC (0-5) Urine WBC (0-5) Ur Squamous Epith Cells (NS,R,O) Urine Bacteria (NS) Hyaline Casts (NS) Med Orders - Current: Current Medications Albuterol/Ipratropium (Duoneb 3.0-0.5 Mg/3 Ml) 3 ml NEB Q8H [facility] Last Admin: 11/01/18 04:17 Dose: 3 ml Albuterol/Ipratropium (Duoneb 3.0-0.5 Mg/3 Ml) 3 ml NEB Q4H PRN PRN Reason: Shortness of Breath Diltiazem HCl (Cardizem Cd) 180 mg PO BID [facility] Last Admin: 10/31/18 21:19 Dose: 180 mg Furosemide (Lasix) 40 mg PO DAILY [facility] Hydralazine HCl (Apresoline) 50 mg PO BID [facility] Last Admin: 10/31/18 21:19 Dose: Not Given Levothyroxine Sodium (Levothyroxine) 75 mcg PO ACBREAKFAST [facility] Last Admin: 11/01/18 07:35 Dose: 75 mcg Morphine Sulfate (Morphine) 1 mg IVPUSH Q4H PRN PRN Reason: Chest Pain Non-Formulary Medication (Levocetirizine Dihydrochloride [Levocetirizine Dihydrochloride]) 5 mg PO BEDTIME [facility] Pantoprazole Sodium (Protonix Iv) 40 mg IVPUSH BEDTIME [facility] Last Admin: 10/31/18 21:20 Dose: 40 mg Sodium Chloride (Saline Flush) 10 ml FLUSH ASDIRECTED PRN PRN Reason: Keep Vein Open Last Admin: 10/31/18 21:34 Dose: 10 ml Vit C/Vit E/Zinc/Copper/Lutein (Ocuvite Lutein) 2 each PO DAILY REYNA Discontinued Medications Diltiazem HCl (Cardizem Cd) Confirm Administered Dose 180 mg .ROUTE .STK-MED ONE Stop: 10/31/18 20:59 Last Admin: 10/31/18 21:19 Dose: Not Given Hydralazine HCl (Apresoline) Confirm Administered Dose 50 mg .ROUTE .STK-MED ONE Stop: 10/31/18 20:59 Last Admin: 10/31/18 21:16 Dose: 50 mg Iopamidol (Isovue-370 (76%)) 75 ml IV ASDIRECTED ONE Stop: 10/31/18 14:36 Last Admin: 10/31/18 14:51 Dose: 62 ml Ketorolac Tromethamine (Toradol) 15 mg IVPUSH ONETIME ONE Stop: 10/31/18 12:39 Last Admin: 10/31/18 12:50 Dose: 15 mg Nitroglycerin (Nitro-Dur 0.2 Mg/Hr) 0.2 mg TRDERM ONETIME ONE Stop: 10/31/18 14:15 Last Admin: 10/31/18 14:43 Dose: 0.2 mg - Exam General: Alert HEENT: Pupils Equal Neck: Supple Lungs: Clear to Auscultation Back Exam: Normal Inspection, Muscle Spasm (Upper back) - Problem List & Annotations (1) Chest pain SNOMED Code(s): 96434761 Code(s): R07.9 - CHEST PAIN, UNSPECIFIED Status: Acute Current Visit: Yes Qualifiers: Chest pain type: intercostal pain Qualified Code(s): R07.82 - Intercostal pain (2) GERD (gastroesophageal reflux disease) SNOMED Code(s): 590433263 Code(s): K21.9 - GASTRO-ESOPHAGEAL REFLUX DISEASE WITHOUT ESOPHAGITIS Status: Acute Current Visit: Yes Qualifiers: Esophagitis presence: without esophagitis Qualified Code(s): K21.9 - Gastro -esophageal reflux disease without esophagitis (3) Asthma SNOMED Code(s): 384091636 Code(s): J45.909 - UNSPECIFIED ASTHMA, UNCOMPLICATED Status: Acute Current Visit: Yes (4) HTN (hypertension) SNOMED Code(s): 71122301 Code(s): I10 - ESSENTIAL (PRIMARY) HYPERTENSION Status: Chronic Current Visit: Yes Qualifiers: Hypertension type: essential hypertension Qualified Code(s): I10 - Essential (primary) hypertension (5) Hypothyroidism SNOMED Code(s): 14528938 Code(s): E03.9 - HYPOTHYROIDISM, UNSPECIFIED Status: Chronic Current Visit: Yes (6) HLD (hyperlipidemia) SNOMED Code(s): 37806698 Code(s): E78.5 - HYPERLIPIDEMIA, UNSPECIFIED Status: Acute Current Visit : Yes Qualifiers: Hyperlipidemia type: unspecified Qualified Code(s): E78.5 - Hyperlipidemia , unspecified (7) Upper back pain SNOMED Code(s): 900612672 Code(s): M54.9 - DORSALGIA, UNSPECIFIED Status: Acute Current Visit: Yes - Problem List Review Problem List Initiated/Reviewed/Updated: Yes - My Orders Last 24 Hours: My Active Orders 10/31/18 20:22 RT Aerosol Therapy [RC] ASDIRECTED 10/31/18 20:23 Morphine 1 mg IVPUSH Q4H PRN 10/31/18 20:30 Albuterol/Ipratropium [DuoNeb 3.0-0.5 MG/3 ML] 3 ml NEB Q8H 10/31/18 20:41 Albuterol/Ipratropium [DuoNeb 3.0-0.5 MG/3 ML] 3 ml NEB Q4H PRN 10/31/18 21:00 Diltiazem [Cardizem CD] 180 mg PO BID Levocetirizine Dihydrochloride [Levocetirizine Dihydrochloride] 5 mg PO BEDTIME Pantoprazole [ProTONIX IV] 40 mg IVPUSH BEDTIME hydrALAZINE [Apresoline] 50 mg PO BID 11/01/18 05:11 EKG 12 Lead [EK] AM 11/01/18 07:30 Levothyroxine 75 mcg PO ACBREAKFAST 11/01/18 09:00 Furosemide [Lasix] 40 mg PO DAILY Lutein/Min/Vit C/Vit E Acetate [Ocuvite Lutein] 2 each PO DAILY Potassium Chloride [Klor-Con M20] 20 meq PO DAILY 11/02/18 Echo Comp wo Cont [US] Timed 11/02/18 05:11 BASIC METABOLIC PANEL,BMP [CHEM] AM TROPONIN I [CHEM] AM - Plan Plan:: Obtain a PT consult for back pain. Echo tomorrow. replace Philipp. Transfer out of ICU
[2018-11-01] MEDS: Potassium Chloride 20 MEQ Tab.ER PO SCH (09:22)
[2018-11-01] MEDS: hydrALAZINE 50 MG Tab PO SCH ×2 (09:22→20:31)
[2018-11-01] MEDS: Furosemide 40 MG Tab PO SCH (09:26)
[2018-11-01] MEDS: Diltiazem 180 MG Cap.CD PO SCH ×2 (09:26→20:32)
[2018-11-01] MEDS: Lutein/Minerals/Vitamin C/Vitamin E Acetate Cap PO SCH (09:26)
[2018-11-01] MEDS: Pantoprazole 40 MG Vial IVPUSH SCH (20:30)
[2018-11-01] MEDS: Sodium Chloride 0.9% 10 ML Syringe FLUSH PRN (20:35)
[2018-11-01] MEDS ORDERED: Loratadine 10 MG Tab PO SCH (21:00)
[2018-11-02] MEDS: Albuterol/Ipratropium 3.0-0.5 MG/3 ML Neb Soln NEB SCH (04:09)
[2018-11-02] MEDS: hydrALAZINE 50 MG Tab PO SCH (08:00)
[2018-11-02] MEDS: Levothyroxine 75 MCG Tab PO SCH (08:00)
[2018-11-02] MEDS: Furosemide 40 MG Tab PO SCH (08:01)
[2018-11-02] MEDS: Diltiazem 180 MG Cap.CD PO SCH (08:01)
[2018-11-02] MEDS: Potassium Chloride 20 MEQ Tab.ER PO SCH (08:01)
[2018-11-02] MEDS: Lutein/Minerals/Vitamin C/Vitamin E Acetate Cap PO SCH (08:02)
--- NOTE | 2018-11-02 14:02 | PCM.DCSUM1 ---
Discharge Summary - Hospital Course HPI Initial Comments: Patient had upper back pain wrapping around to her chest on Weds am, it was persisting even with rest so she went to [facility] and saw Dr Cortés. The ambulance was called and she was brought to [place] ER and admitted for serial cardiac enzymes, telemetry monitoring and rule out a cardiac cause. 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 Has not seen cardiology since then. Diagnosis: Stroke: No - Discharge Data Discharge Date: 11/02/18 Discharge Disposition: Home, Self-Care 01 Condition: Good - Discharge Diagnosis/Problem(s) (1) Upper back pain SNOMED Code(s): 716987397 ICD Code: M54.9 - DORSALGIA, UNSPECIFIED Status: Acute Current Visit: Yes Problem Details: musculoskeletal (2) Chest pain SNOMED Code(s): 68070730 ICD Code: R07.9 - CHEST PAIN, UNSPECIFIED Status: Acute Current Visit: Yes Qualifiers: Chest pain type: intercostal pain Qualified Code(s): R07.82 - Intercostal pain (3) GERD (gastroesophageal reflux disease) SNOMED Code(s): 520208316 ICD Code: K21.9 - GASTRO-ESOPHAGEAL REFLUX DISEASE WITHOUT ESOPHAGITIS Status: Acute Current Visit: Yes Qualifiers: Esophagitis presence: without esophagitis Qualified Code(s): K21.9 - Gastro -esophageal reflux disease without esophagitis (4) HTN (hypertension) SNOMED Code(s): 54602267 ICD Code: I10 - ESSENTIAL (PRIMARY) HYPERTENSION Status: Chronic Current Visit: Yes Qualifiers: Hypertension type: essential hypertension Qualified Code(s): I10 - Essential (primary) hypertension (5) Hypothyroidism SNOMED Code(s): 20526157 ICD Code: E03.9 - HYPOTHYROIDISM, UNSPECIFIED Status: Chronic Current Visit: Yes (6) Asthma SNOMED Code(s): 275354269 ICD Code: J45.909 - UNSPECIFIED ASTHMA, UNCOMPLICATED Status: Chronic Current Visit: Yes (7) HLD (hyperlipidemia) SNOMED Code(s): 85785748 ICD Code: E78.5 - HYPERLIPIDEMIA, UNSPECIFIED Status: Acute Current Visit : Yes Qualifiers: Hyperlipidemia type: unspecified Qualified Code(s): E78.5 - Hyperlipidemia , unspecified (8) Hiatal hernia SNOMED Code(s): 11046182 ICD Code: K44.9 - DIAPHRAGMATIC HERNIA WITHOUT OBSTRUCTION OR GANGRENE Status: Acute Current Visit: Yes Problem Details: moderate fixed, right behind her heart - Patient Summary/Data Consults: Consultations 11/01/18 09:00 OT Evaluation and Treatment [CONS] Routine Please Evaluate and Treat. OT Reason for Consult: Other (Type Response) This query below is only for informational purposes and is not editable. Admission Diagnosis/Problem: Chest pain PT Evaluation and Treatment [CONS] Routine Please Evaluate and Treat. PT Reason for Consult: Other (Type Response) Pending Discharge: Back Pain This query below is only for informational purposes and is not editable. Admission Diagnosis/Problem: Chest pain Recommended Follow-up Testing/Procedures: Follow up Echocardiogram report with Dr Cortés, preliminary report viewed by myself and discussed with patient and her . Set up with [facility] for outpatient evaluation of left upper back pain. Hospital Course: Patient had trending down of her cardiac enzymes with her last set being < 0.017. CT angiogram showed no pulmonary embolism, moderate fixed hiatal hernia behind her heart. Chest x-ray also showed cardiomegaly, no effusion, changes consistent with COPD. PT evaluated and recommended further evaluation as an outpatient. Echocardiogram was done on day of discharge, preliminary report shows LV hypertrophy, thickened mitral valve leaflets, hyperdynamic LV underfilled, No LVOT(LV outflow tract) gradient but turbulent LVOT flow. Mild mitral & tricuspid regurgitation, trace pulmonary regurgitation. Questionable ROMEO(systolic anterior motion of mitral valve). Patient has not had any issues with syncope, lightheadedness prior to admission or during. Stated that she has had problems with getting her blood pressure controlled. Pain was reproducible, worse with pressure to left upper back but better when sitting up, her symptoms could be related to fixed hiatal hernia, which is chronic. Potassium was replaced during stay and come up from 3.0 to 3.4 at time of discharge. Will discharge to home in care of her , follow up with Dr Cortés or Anant next week to review final echo report. Advised to use Biofreeze and heat on left upper back and get set up with [facility] for evaluation. - Patient Instructions Diet: Heart Healthy Diet Activity: Apply Ice Driving: May Drive Today Showering/Bathing: May Shower Notify Provider of: Fever, Increased Pain, Nausea and/or Vomiting - Discharge Plan *PRESCRIPTION DRUG MONITORING PROGRAM REVIEWED*: No *COPY OF PRESCRIPTION DRUG MONITORING REPORT IN PATIENT EVELINE: No Home Medications: Home Meds Albuterol Sulfate [Albuterol Sulfate Hfa] 2 puff IH QID PRN 10/31/18 [History] Diltiazem HCl [Cartia Xt] 180 mg PO BID 10/31/18 [History] Furosemide 40 mg PO DAILY 10/31/18 [History] Isosorbide Mononitrate [Imdur] 60 mg PO DAILY 10/31/18 [History] Levocetirizine Dihydrochloride 5 mg PO BEDTIME 10/31/18 [History] Levothyroxine 75 mcg PO ACBREAKFAST 10/31/18 [History] Lutein/Minerals/Vit A,C & E [Ocuvite] 2 tab PO DAILY 10/31/18 [History] Nitroglycerin [Nitrostat] 0.4 mg SL ASDIRECTED PRN 10/31/18 [History] diphenhydrAMINE [Benadryl] 25 mg PO Q4H PRN 10/31/18 [History] hydrALAZINE [Apresoline] 50 mg PO BID 10/31/18 [History] Oxygen Therapy Mode: Room Air Patient Handouts: Nonspecific Chest Pain, [id number] Forms: ED Department Discharge Referrals: Juvenal Reynolds MD [Primary Care Provider] - - Discharge Summary/Plan Comment DC Time >30 min.: Yes - Patient Data Vitals - Most Recent: Last Vital Signs Temp 36.7 C 11/02/18 08:00 Pulse 67 11/02/18 08:00 Resp 18 11/02/18 08:00 BP 155/54 H 11/02/18 08:00 Pulse Ox 94 L 11/02/18 08:00 Weight - Most Recent: 67.857 kg Lab Results - Last 24 hrs: Laboratory Results - last 24 hr 11/02/18 11/02/18 Range/Units 06:25 06:25 Sodium 145 (135-145) mmol/L Potassium 3.4 L (3.5-5.3) mmol/L Chloride 107 (100-110) mmol/L Carbon Dioxide 29 (21-32) mmol/L BUN 25 H (7-18) mg/dL Creatinine 1.3 H (0.55-1.02) mg/dL Est Cr Clr Drug Dosing 26.03 mL/min Estimated GFR (MDRD) 40 L (>60) BUN/Creatinine Ratio 19.2 (9-20) Glucose 98 (80-116) mg/dL Calcium 8.8 (8.6-10.2) mg/dL Troponin I < 0.017 L (<0.017-0.056) ng/mL Med Orders - Current: Current Medications Albuterol/Ipratropium (Duoneb 3.0-0.5 Mg/3 Ml) 3 ml NEB Q4H PRN PRN Reason: Shortness of Breath Diltiazem HCl (Cardizem Cd) 180 mg PO BID [facility] Last Admin: 11/02/18 08:01 Dose: 180 mg Furosemide (Lasix) 40 mg PO DAILY [facility] Last Admin: 11/02/18 08:01 Dose: 40 mg Hydralazine HCl (Apresoline) 50 mg PO BID [facility] Last Admin: 11/02/18 08:00 Dose: 50 mg Levothyroxine Sodium (Levothyroxine) 75 mcg PO ACBREAKFAST [facility] Last Admin: 11/02/18 08:00 Dose: 75 mcg Loratadine (Claritin) 10 mg PO BEDTIME [facility] Last Admin: 11/01/18 20:33 Dose: 10 mg Morphine Sulfate (Morphine) 1 mg IVPUSH Q4H PRN PRN Reason: Chest Pain Potassium Chloride (Klor-Con M20) 20 meq PO DAILY [facility] Last Admin: 11/02/18 08:01 Dose: 20 meq Sodium Chloride (Saline Flush) 10 ml FLUSH ASDIRECTED PRN PRN Reason: Keep Vein Open Last Admin: 11/01/18 20:35 Dose: 10 ml Vit C/Vit E/Zinc/Copper/Lutein (Ocuvite Lutein) 2 each PO DAILY [facility] Last Admin: 11/02/18 08:02 Dose: 2 each Discontinued Medications Albuterol/Ipratropium (Duoneb 3.0-0.5 Mg/3 Ml) 3 ml NEB Q8H [facility] Last Admin: 11/02/18 04:09 Dose: 3 ml Diltiazem HCl (Cardizem Cd) Confirm Administered Dose 180 mg .ROUTE .STK-MED ONE Stop: 10/31/18 20:59 Last Admin: 10/31/18 21:19 Dose: Not Given Hydralazine HCl (Apresoline) Confirm Administered Dose 50 mg .ROUTE .STK-MED ONE Stop: 10/31/18 20:59 Last Admin: 10/31/18 21:16 Dose: 50 mg Iopamidol (Isovue-370 (76%)) 75 ml IV ASDIRECTED ONE Stop: 10/31/18 14:36 Last Admin: 10/31/18 14:51 Dose: 62 ml Ketorolac Tromethamine (Toradol) 15 mg IVPUSH ONETIME ONE Stop: 10/31/18 12:39 Last Admin: 10/31/18 12:50 Dose: 15 mg Miscellaneous Information (Remove Patch) 1 ea TRDERM ONETIME ONE Stop: 11/01/18 09:46 Last Admin: 11/01/18 10:54 Dose: 1 ea Nitroglycerin (Nitro-Dur 0.2 Mg/Hr) 0.2 mg TRDERM ONETIME ONE Stop: 10/31/18 14:15 Last Admin: 10/31/18 14:43 Dose: 0.2 mg Pantoprazole Sodium (Protonix Iv) 40 mg IVPUSH BEDTIME [facility] Last Admin: 11/01/18 20:30 Dose: 40 mg - Exam General: Reports: Alert, Oriented Lungs: Reports: Clear to Auscultation, Normal Respiratory Effort Cardiovascular: Reports: Regular Rate, Regular Rhythm GI/Abdominal Exam: Normal Bowel Sounds, Soft, Non-Tender, No Distention Back Exam: Reports: Other (point muscle tenderness distal to left midscapula) Extremities: Non-Tender, No Pedal Edema Skin: Reports: Warm, Dry, Intact
== END 2018-11-02 14:31 | disposition home or self-care (01) | DRG 552 ==
LOC: FB.ED 11:48 → FB.MS 15:34 → UNDOADMIN 15:34 → FB.MS 16:09 → UNDODISIN 11-02 14:31
PROVIDERS: ADMIT Family Medicine; ATTEND Family Medicine
DX: M54.9 Dorsalgia, unspecified (principal); R07.82 Intercostal pain; I25.10 Atherosclerotic heart disease of native coronary artery without angina pectoris; Z95.1 Presence of aortocoronary bypass graft; Z87.891 Personal history of nicotine dependence; K21.9 Gastro-esophageal reflux disease without esophagitis; K44.9 Diaphragmatic hernia without obstruction or gangrene; H40.9 Unspecified glaucoma; H35.30 Unspecified macular degeneration; J44.9 Chronic obstructive pulmonary disease, unspecified; G47.30 Sleep apnea, unspecified; I13.10 Hypertensive heart and chronic kidney disease without heart failure, with stage 1 through stage 4 chronic kidney disease, or unspecified chronic kidney disease; N18.9 Chronic kidney disease, unspecified; M19.90 Unspecified osteoarthritis, unspecified site; E03.9 Hypothyroidism, unspecified; E78.5 Hyperlipidemia, unspecified; E66.9 Obesity, unspecified; Z91.030 Bee allergy status; Z88.1 Allergy status to other antibiotic agents; Z88.2 Allergy status to sulfonamides; Z88.8 Allergy status to other drugs, medicaments and biological substances; Z79.890 Hormone replacement therapy; Z79.899 Other long term (current) drug therapy
CPT/HCPCS: 36415; 71046; 71275; 80048; 81001; 82550; 84484; 85025; 85379; 85610; 93005; 99285; A9270; J1885; Q9967; 83880; 93306; 94640; C9113; J7620-GY

== ENCOUNTER 2019-03-28 12:08 | Inpatient (IN) | payer MEDICARE, BC ==
[2019-03-28] MEDS ORDERED: Acetaminophen 325 MG Tab PO PRN (14:44)
[2019-03-28] MEDS ORDERED: Levofloxacin/Dextrose 5%-Water 500 MG in Premix Bag 1 BAG IV SCH (16:00)
[2019-03-28] MEDS: Sodium Chloride 0.9% 1,000 ML IV SCH (16:12)
[2019-03-28] MEDS: Enoxaparin 30 MG/0.3 ML Syringe SUBCUT SCH (17:43)
[2019-03-28] MEDS: methylPREDNISolone Sodium Succinate 40 MG/1 ML SDV IVPUSH SCH (19:30)
[2019-03-28] MEDS: Diltiazem 180 MG Cap.CD PO SCH (21:14)
[2019-03-28] MEDS: hydrALAZINE 50 MG Tab PO SCH (21:20)
[2019-03-29] MEDS: methylPREDNISolone Sodium Succinate 40 MG/1 ML SDV IVPUSH SCH (02:30)
[2019-03-29] MEDS: Sodium Chloride 0.9% 1,000 ML IV SCH (06:02)
[2019-03-29] MEDS: Levothyroxine 75 MCG Tab PO SCH (06:10)
[2019-03-29] MEDS ORDERED: Levothyroxine 75 MCG Tab PO SCH (07:30)
[2019-03-29] MEDS: Isosorbide Mononitrate 60 MG Tab.ER PO SCH (09:13)
[2019-03-29] MEDS: Diltiazem 180 MG Cap.CD PO SCH ×2 (09:13→20:43)
[2019-03-29] MEDS: hydrALAZINE 50 MG Tab PO SCH ×2 (09:14→20:42)
[2019-03-29] MEDS ORDERED: Furosemide 40 MG/4 ML VIAL IVPUSH ONE (09:52)
--- NOTE | 2019-03-29 09:54 | PCM.HP.2 ---
H&P History of Present Illness - General Date of Service: 03/29/19 Admit Problem/Dx: Admission Diagnosis/Problem Admission Diagnosis/Problem Pneumonia Source of Information: Patient History Limitations: Reports: No Limitations - History of Present Illness Initial Comments - Free Text/Narative: Mrs. Barrientos is a 78-year-old female was admitted from the clinic with pneumonia. Previously seen on March 22 treated with oral antibiotics but with no improvement. She complains a productive cough, wheezing and shortness of breath on ambulation. She has a history of COPD that is previously well controlled. She also has a history of heart failure with preserved ejection fraction that is stable. Today she complains of upper back pain and some nausea. She denies fever or chills. UPPER MID BACK AREA Pain Score (Numeric/FACES): 3 DENIES ANY PAIN WHEN ASKED AT PRESENT TIME. Pain Score (Numeric/FACES): 0 - Related Data Allergies/Adverse Reactions: Allergies Allergy/AdvReac Type Severity Reaction Status Date / Time JOLENE Inhibitors Allergy Wheezing Verified 03/28/19 15:42 alcohol Allergy Nausea Verified 03/28/19 15:42 amlodipine [From Norvasc] Allergy Edema Verified 03/28/19 15:42 bee venom protein (honey bee) Allergy Other Verified 03/28/19 15:42 brimonidine Allergy Other Verified 03/28/19 15:42 cephalexin [From Keflex] Allergy Rash Verified 03/28/19 15:42 hydrocodone Allergy Other Verified 03/28/19 15:42 iodine Allergy Cannot Verified 03/28/19 15:42 Remember nadolol Allergy Wheezing Verified 03/28/19 15:42 olmesartan [From Benicar] Allergy Hives Verified 03/28/19 15:42 prednisone Allergy Edema Verified 03/28/19 15:42 Sulfa (Sulfonamide Allergy Rash Verified 03/28/19 15:42 Antibiotics) triamcinolone [From Nasacort] Allergy Cannot Verified 03/28/19 15:42 Remember Home Medications: Home Meds Albuterol Sulfate [Albuterol Sulfate Hfa] 2 puff IH QID PRN 10/31/18 [History] Diltiazem HCl [Cartia Xt] 180 mg PO BID 10/31/18 [History] Furosemide 40 mg PO DAILY 10/31/18 [History] Isosorbide Mononitrate [Imdur] 60 mg PO DAILY 10/31/18 [History] Levothyroxine 75 mcg PO ACBREAKFAST 10/31/18 [History] Lutein/Minerals/Vit A,C & E [Ocuvite] 2 tab PO DAILY 10/31/18 [History] Nitroglycerin [Nitrostat] 0.4 mg SL ASDIRECTED PRN 10/31/18 [History] diphenhydrAMINE [Benadryl] 25 mg PO Q4H PRN 10/31/18 [History] hydrALAZINE [Apresoline] 50 mg PO BID 10/31/18 [History] Acetaminophen [Tylenol Extra Strength] 1,000 mg PO Q6H PRN 03/28/19 [History] Amoxicillin/Clavulanate K [Augmentin 875-125 MG] 1 tab PO BID 03/28/19 [History] Azithromycin 250 mg PO DAILY 03/28/19 [History] Budesonide/Formoterol Fumarate [Symbicort 160-4.5 Mcg Inhaler] 1 puff IH BID 05/16 [History] Carboxymethylcellulose Sodium [Refresh Tears] 1 drop EYEBOTH ASDIRECTED PRN 05/16 [History] Past Medical History HEENT History: Reports: Glaucoma, Impaired Vision, Macular Degeneration, Other ( See Below) Other HEENT History: injections into L eye for mac degen. Cardiovascular History: Reports: Bypass, CAD, Hypertension, AL Other Cardiovascular History: 4 vessel CABG Respiratory History: Reports: Asthma, COPD, Sleep Apnea Other Respiratory History: uses CPAP Gastrointestinal History: Reports: Hiatal Hernia Genitourinary History: Reports: Renal Disease [employer] History: Reports: Other OB/BYN History: Musculoskeletal History: Reports: Arthritis Endocrine/Metabolic History: Reports: Hypothyroidism, Obesity/BMI 30+ Hematologic History: Reports: Blood Transfusion(s) Dermatologic History: Reports: Other (See Below) Other Dermatologic History: chalazioun L upper eyelid. - Infectious Disease History Infectious Disease History: Reports: Chicken Pox, Measles, Mumps - Past Surgical History HEENT Surgical History: Reports: Adenoidectomy, Cataract Surgery, Tonsillectomy Other HEENT Surgeries/Procedures: bilat cataract Cardiovascular Surgical History: Reports: Coronary Artery Bypass Respiratory Surgical History: Reports: None GI Surgical History: Reports: Colonoscopy Female Surgical History: Reports: Section Other Female Surgeries/Procedures: CS x 3 Endocrine Surgical History: Reports: Parathyroidectomy Musculoskeletal Surgical History: Reports: None Social & Family History - Family History Family Medical History: Noncontributory - Tobacco Use Smoking Status *Q: Former Smoker Years of Tobacco use: 40 Used Tobacco, but Quit: Yes Month/Year Tobacco Last Used: 2004 - Caffeine Use Caffeine Use: Reports: Coffee - Recreational Drug Use Recreational Drug Use: No H&P Review of Systems - Review of Systems: Review Of Systems: Comprehensive ROS is negative, except as noted in HPI. Exam - Exam Exam: See Below - Vital Signs Vital Signs: Last Vital Signs Temp 98.4 F 03/29/19 04:00 Pulse 80 03/29/19 04:00 Resp 20 03/29/19 04:00 BP 159/85 H 03/29/19 09:14 Pulse Ox 92 L 03/29/19 04:00 Weight: 68.492 kg - Exam Quality Assessment: Supplemental Oxygen General: Alert, Oriented, 4 HEENT: PERRLA, Hearing Intact, Mucosa Moist & [place], Nares Patent, Normal Nasal Septum, Posterior Pharynx Clear, Conjunctiva Clear, EOMI, EACs Clear, TMs Clear Neck: Supple, Trachea Midline, 2 Lungs: Crackles, Rhonchi Cardiovascular: Regular Rate, Regular Rhythm GI/Abdominal Exam: Normal Bowel Sounds, Soft, Non-Tender, No Organomegaly, No Distention, No Abnormal Bruit, No Mass, Pelvis Stable (Female) Exam: Deferred Rectal (Female) Exam: Deferred Back Exam: Normal Inspection, Full Range of Motion, NT Extremities: Normal Inspection, Normal Range of Motion, Non-Tender, No Pedal Edema, Normal Capillary Refill Skin: Warm, Dry, Intact Neurological: Cranial Nerves Intact, Reflexes Equal Bilateral Neuro Extensive - Mental Status: Alert, Oriented x3, Normal Mood/Affect, Normal Cognition Neuro Extensive - Motor, Sensory, Reflexes: CN II-XII Intact, Normal Gait, Normal Reflexes Psychiatric: Alert, Normal Affect, Normal Mood - Patient Data Lab Results Last 24 hrs: Laboratory Results - last 24 hr 03/28/19 03/28/19 Range/Units 15:00 15:00 WBC 6.7 (4.5-12.0) X10-3/uL RBC 3.45 (3.23-5.20) x10(6)uL Hgb 10.4 L (11.5-15.5) g/dL Hct 31.5 (30.0-51.3) % MCV 91.4 (80-96) fL MCH 30.2 (27.7-33.6) pg MCHC 33.0 (32.2-35.4) g/dL RDW 13.9 (11.5-15.5) % Plt Count 419 H (125-369) X10(3)uL MPV 7.3 L (7.4-10.4) fL Neut % (Auto) 72.5 (46-82) % Lymph % (Auto) 14.3 (13-37) % [place] % (Auto) 8.3 (4-12) % Eos % (Auto) 4 (1.0-5.0) % Baso % (Auto) 1 (0-2) % Neut # (Auto) 4.8 (1.6-8.3) # Lymph # (Auto) 1.0 (0.6-5.0) # [place] # (Auto) 0.6 (0.0-1.3) # Eos # (Auto) 0.3 (0.0-0.8) # Baso # (Auto) 0.0 (0.0-0.2) # ESR 60 H (0-20) mm/hr Sodium 142 (135-145) mmol/L Potassium 3.9 (3.5-5.3) mmol/L Chloride 103 (100-110) mmol/L Carbon Dioxide 29 (21-32) mmol/L BUN 17 (7-18) mg/dL Creatinine 1.3 H (0.55-1.02) mg/dL Est Cr Clr Drug Dosing 26.03 mL/min Estimated GFR (MDRD) 40 L (>60) BUN/Creatinine Ratio 13.1 (9-20) Glucose 104 (80-116) mg/dL Calcium 9.2 (8.6-10.2) mg/dL Magnesium 2.2 (1.8-2.5) mg/dL Result Diagrams: 03/28/19 15:00 03/28/19 15:00 Sepsis Event Note - Evaluation Sepsis Screening Result: No Definite Risk - Focused Exam Vital Signs: Vital Signs Temp Pulse Resp BP BP Pulse Ox Pulse Ox 03/29/19 09:14 159/85 H 03/29/19 04:00 98.4 F 80 20 154/70 H 92 L 92 L 03/29/19 00:00 98.2 F 88 20 143/68 H 93 L Date Exam was Performed: 03/29/19 Time Exam was Performed: 15:53 - Problem List (1) Pneumonia SNOMED Code(s): 771750797 ICD Code: J18.9 - PNEUMONIA, UNSPECIFIED ORGANISM Status: Acute Current Visit: Yes Qualifiers: Pneumonia type: due to unspecified organism (2) Asthma SNOMED Code(s): 419748325 ICD Code: J45.909 - UNSPECIFIED ASTHMA, UNCOMPLICATED Status: Chronic Qualifiers: Asthma severity: moderate (3) HTN (hypertension) SNOMED Code(s): 14542383 ICD Code: I10 - ESSENTIAL (PRIMARY) HYPERTENSION Status: Chronic Qualifiers: Hypertension type: essential hypertension (4) CAD (coronary artery disease) SNOMED Code(s): 29971336 ICD Code: I25.10 - ATHSCL HEART DISEASE OF [place] CORONARY ARTERY W/O ANG PCTRS Status: Acute Current Visit: Yes (5) GERD (gastroesophageal reflux disease) SNOMED Code(s): 339080972 ICD Code: K21.9 - GASTRO-ESOPHAGEAL REFLUX DISEASE WITHOUT ESOPHAGITIS Status: Acute Current Visit: No Qualifiers: Esophagitis presence: without esophagitis Qualified Code(s): K21.9 - Gastro -esophageal reflux disease without esophagitis (6) Upper back pain SNOMED Code(s): 966801769 ICD Code: M54.9 - DORSALGIA, UNSPECIFIED Status: Acute Current Visit: No Problem Details: musculoskeletal (7) Hypothyroidism SNOMED Code(s): 47783481 ICD Code: E03.9 - HYPOTHYROIDISM, UNSPECIFIED Status: Chronic Current Visit: No (8) COPD (chronic obstructive pulmonary disease) SNOMED Code(s): 41941346 ICD Code: J44.9 - CHRONIC OBSTRUCTIVE PULMONARY DISEASE, UNSPECIFIED Status : Acute Current Visit: Yes Problem List Initiated/Reviewed/Updated: Yes Orders Last 24hrs: Active Orders 24 hr Category Date Time Status Admission Status [Patient Status] [ADT] Routine ADT 03/28/19 12:20 Active Patient Status [ADT] Routine ADT 03/28/19 14:45 Active Ambulate [RC] ASDIRECTED Care 03/28/19 14:44 Active Height and Weight [RC] 06 Care 03/28/19 14:44 Active Intake and Output [RC] 06,14,22 Care 03/28/19 14:46 Active May Shower [RC] ASDIRECTED Care 03/28/19 14:44 Active Oxygen Therapy [RC] PRN Care 03/28/19 14:45 Active Pulse Oximetry [RC] PRN Care 03/28/19 14:46 Active Up With Assistance [RC] ASDIRECTED Care 03/28/19 14:44 Active Up to Chair [RC] ASDIRECTED Care 03/28/19 14:44 Active Vital Signs [RC] 00,04,08,12,16,20 Care 03/28/19 14:45 Active Regular Diet [DIET] Diet 03/28/19 Lunch Active Chest 2V [CR] Timed Exams 03/29/19 07:00 Ordered BASIC METABOLIC PANEL,BMP [CHEM] AM Lab 03/30/19 05:11 Ordered CBC WITH AUTO DIFF [HEME] AM Lab 03/30/19 05:11 Ordered CULTURE BLOOD [BC] Urgent Lab 03/28/19 15:00 Received CULTURE BLOOD [BC] Urgent Lab 03/28/19 15:09 Received PRO B-TYPE NATRIUR PEPT,BNPPRO [CHEM] DAILY Lab 03/30/19 10:00 Ordered Acetaminophen [Tylenol] Med 03/28/19 14:44 Active 650 mg PO Q4H PRN Diltiazem [Cardizem CD] Med 03/28/19 21:00 Active 180 mg PO BID Enoxaparin [Lovenox] Med 03/28/19 16:00 Active 30 mg SUBCUT Q24H Furosemide [Lasix] Med 03/29/19 09:52 Once 40 mg IVPUSH NOW ONE Isosorbide Mononitrate [Imdur] Med 03/29/19 09:00 Active 60 mg PO DAILY Levofloxacin/Dextrose 5%-Water [Levaquin in D5W 250 MG/ Med 03/29/19 16:00 Active 50 ML] 50 ml IV Q24H Levothyroxine Med 03/29/19 06:00 Active 75 mcg PO DAILY@0600 hydrALAZINE [Apresoline] Med 03/28/19 21:00 Active 50 mg PO BID methylPREDNISolone Sod Succ [Solu-MEDROL] Med 03/29/19 10:00 Ordered 125 mg IVPUSH Q8H Blood Culture x2 Reflex Set [OM.PC] Urgent Oth 03/28/19 14:44 Ordered Resuscitation Status Routine Resus Stat 03/28/19 14:44 Ordered Medication Orders Acetaminophen (Tylenol) 650 mg PO Q4H PRN PRN Reason: Pain (Mild 1-3)/fever Last Admin: 03/29/19 00:45 Dose: 650 mg Diltiazem HCl (Cardizem Cd) 180 mg PO BID [facility] Last Admin: 03/29/19 09:13 Dose: 180 mg Admin: 03/28/19 21:14 Dose: 180 mg Enoxaparin Sodium (Lovenox) 30 mg SUBCUT Q24H [facility] Last Admin: 03/28/19 17:43 Dose: 30 mg Furosemide (Lasix) 40 mg IVPUSH NOW ONE Stop: 03/29/19 09:53 Hydralazine HCl (Apresoline) 50 mg PO BID [facility] Last Admin: 03/29/19 09:14 Dose: 50 mg Admin: 03/28/19 21:20 Dose: 50 mg Levofloxacin/Dextrose (Levaquin In D5w 250 Mg/50 Ml) 50 mls @ 50 mls/hr IV Q24H [facility] Isosorbide Mononitrate (Imdur) 60 mg PO DAILY [facility] Last Admin: 03/29/19 09:13 Dose: 60 mg Levothyroxine Sodium (Levothyroxine) 75 mcg PO DAILY@0600 [facility] Last Admin: 03/29/19 06:10 Dose: 75 mcg Methylprednisolone Sodium Succinate (Solu-Medrol) 125 mg IVPUSH Q8H [facility] Assessment/Plan Comment:: Xray done today showed some improvement of the pneumonia. COPD is evident .We' ll continue with IV antibiotics, Solu-Medrol, and SVNs. We'll repeat some labs the morning consider discharge in 3-4 days - Mortality Measure Prognosis:: Good
[2019-03-29] MEDS ORDERED: Azithromycin 250 MG in Sodium Chloride 0.9% 250 ML IV SCH (10:00)
[2019-03-29] MEDS ORDERED: Ondansetron 4 MG Tab.DIS PO PRN (10:54)
[2019-03-29] MEDS: methylPREDNISolone Sodium Succinate 125 MG/2 ML SDV IVPUSH SCH ×2 (10:54→17:25)
[2019-03-29] MEDS ORDERED: Morphine 2 MG/ML Syringe IVPUSH PRN (13:21)
[2019-03-29] MEDS ORDERED: diphenhydrAMINE 25 MG Cap PO PRN (15:59)
[2019-03-29] MEDS: Enoxaparin 30 MG/0.3 ML Syringe SUBCUT SCH (16:10)
[2019-03-29] MEDS: Levofloxacin/Dextrose 5%-Water 50 ML IV SCH (16:10)
[2019-03-29] MEDS: Sodium Chloride 0.9% 10 ML Syringe FLUSH SCH ×2 (16:10→17:26)
[2019-03-29] MEDS: Albuterol/Ipratropium 3.0-0.5 MG/3 ML Neb Soln NEB PRN (17:25)
[2019-03-30] MEDS: methylPREDNISolone Sodium Succinate 125 MG/2 ML SDV IVPUSH SCH ×3 (02:44→17:38)
[2019-03-30] MEDS: Levothyroxine 75 MCG Tab PO SCH (07:49)
[2019-03-30] MEDS: Diltiazem 180 MG Cap.CD PO SCH ×2 (08:01→20:18)
[2019-03-30] MEDS: hydrALAZINE 50 MG Tab PO SCH ×2 (08:01→20:15)
[2019-03-30] MEDS: Isosorbide Mononitrate 60 MG Tab.ER PO SCH (08:01)
--- NOTE | 2019-03-30 10:12 | PCM.PN ---
- General Info Date of Service: 03/30/19 Subjective Update: Feeling much better today Functional Status: Reports: Pain Controlled - Review of Systems Pulmonary: Reports: No Symptoms Cardiovascular: Reports: No Symptoms Gastrointestinal: Reports: No Symptoms Genitourinary: Reports: No Symptoms - Patient Data Vitals - Most Recent: Last Vital Signs Temp 98.3 F 03/30/19 00:00 Pulse 75 03/30/19 00:00 Resp 16 03/30/19 00:00 BP 137/69 03/30/19 08:01 Pulse Ox 93 L 03/30/19 04:00 Weight - Most Recent: 65.68 kg I&O - Last 24 Hours: Intake & Output 03/29/19 03/30/19 03/30/19 22:59 06:59 14:59 Intake Total 800 Output Total 200 Balance 600 Lab Results Last 24 Hours: Laboratory Results - last 24 hr 03/30/19 03/30/19 03/30/19 Range/Units 07:08 07:08 07:08 WBC 4.7 (4.5-12.0) X10-3/uL RBC 3.63 (3.23-5.20) x10(6)uL Hgb 11.2 L (11.5-15.5) g/dL Hct 33.6 (30.0-51.3) % MCV 92.6 (80-96) fL MCH 30.9 (27.7-33.6) pg MCHC 33.4 (32.2-35.4) g/dL RDW 13.3 (11.5-15.5) % Plt Count 448 H (125-369) X10(3)uL MPV 7.7 (7.4-10.4) fL Neut % (Auto) 88.0 H (46-82) % Lymph % (Auto) 11.2 L (13-37) % [place] % (Auto) 0.6 L (4-12) % Eos % (Auto) 0 L (1.0-5.0) % Baso % (Auto) 0 (0-2) % Neut # (Auto) 4.2 (1.6-8.3) # Lymph # (Auto) 0.5 L (0.6-5.0) # [place] # (Auto) 0.0 (0.0-1.3) # Eos # (Auto) 0.0 (0.0-0.8) # Baso # (Auto) 0.0 (0.0-0.2) # Sodium 142 (135-145) mmol/L Potassium 4.3 (3.5-5.3) mmol/L Chloride 103 (100-110) mmol/L Carbon Dioxide 29 (21-32) mmol/L BUN 27 H D (7-18) mg/dL Creatinine 1.5 H (0.55-1.02) mg/dL Est Cr Clr Drug Dosing 22.56 mL/min Estimated GFR (MDRD) 34 L (>60) BUN/Creatinine Ratio 18.0 (9-20) Glucose 163 H (80-116) mg/dL Calcium 9.5 (8.6-10.2) mg/dL NT-Pro-B Natriuret Pep 1675 H* (<=450) pg/mL Van Results Last 24 Hours: Microbiology 03/28/19 15:00 Aerobic Blood Culture - Preliminary Blood - Venous NO GROWTH AFTER 1 DAY Anaerobic Blood Culture - Preliminary NO GROWTH AFTER 1 DAY 03/28/19 15:09 Aerobic Blood Culture - Preliminary Blood - Venous - Lab Draw NO GROWTH AFTER 1 DAY Anaerobic Blood Culture - Preliminary NO GROWTH AFTER 1 DAY Med Orders - Current: Current Medications Acetaminophen (Tylenol) 650 mg PO Q4H PRN PRN Reason: Pain (Mild 1-3)/fever Last Admin: 03/29/19 00:45 Dose: 650 mg Albuterol/Ipratropium (Duoneb 3.0-0.5 Mg/3 Ml) 3 ml NEB Q6H PRN PRN Reason: Wheezing Last Admin: 03/29/19 17:25 Dose: 3 ml Diltiazem HCl (Cardizem Cd) 180 mg PO BID [facility] Last Admin: 03/30/19 08:01 Dose: 180 mg Diphenhydramine HCl (Benadryl) 25 mg PO BEDTIME PRN PRN Reason: Allergies Last Admin: 03/29/19 20:54 Dose: 25 mg Diphenhydramine HCl (Benadryl) 50 mg PO BEDTIME PRN PRN Reason: Insomnia Enoxaparin Sodium (Lovenox) 30 mg SUBCUT Q24H [facility] Last Admin: 03/29/19 16:10 Dose: 30 mg Furosemide (Lasix) 20 mg IVPUSH BID [facility] Hydralazine HCl (Apresoline) 50 mg PO BID [facility] Last Admin: 03/30/19 08:01 Dose: 50 mg Levofloxacin/Dextrose (Levaquin In D5w 250 Mg/50 Ml) 50 mls @ 50 mls/hr IV Q24H [facility] Last Admin: 03/29/19 16:10 Dose: 50 mls/hr Isosorbide Mononitrate (Imdur) 60 mg PO DAILY [facility] Last Admin: 03/30/19 08:01 Dose: 60 mg Levothyroxine Sodium (Levothyroxine) 75 mcg PO DAILY@0600 [facility] Last Admin: 03/30/19 07:49 Dose: 75 mcg Methylprednisolone Sodium Succinate (Solu-Medrol) 125 mg IVPUSH Q8H [facility] Last Admin: 03/30/19 02:44 Dose: 125 mg Morphine Sulfate (Morphine) 2 mg IVPUSH Q2H PRN PRN Reason: Pain Non-Formulary Medication (Budesonide/Formoterol Fumarate [Symbicort 160-4.5 Mcg Inhaler]) 1 puff IH BID [facility] Ondansetron HCl (Zofran Odt) 4 mg PO Q4H PRN PRN Reason: Nausea/Vomiting Last Admin: 03/29/19 11:12 Dose: 4 mg Sodium Chloride (Saline Flush) 10 ml FLUSH ASDIRECTED [facility] Last Admin: 03/29/19 17:26 Dose: 10 ml Discontinued Medications Furosemide (Lasix) 40 mg IVPUSH NOW ONE Stop: 03/29/19 09:53 Last Admin: 03/29/19 10:54 Dose: 40 mg Sodium Chloride (Normal Saline) 1,000 mls @ 75 mls/hr IV ASDIRECTED [facility] Last Admin: 03/29/19 06:02 Dose: 75 mls/hr Azithromycin 250 mg/ Sodium (Chloride) 250 mls @ 250 mls/hr IV Q24H [facility] Levofloxacin/Dextrose 500 mg/ (Premix) 100 mls @ 100 mls/hr IV Q24H [facility] Last Admin: 03/28/19 16:15 Dose: 100 mls/hr Levothyroxine Sodium (Levothyroxine) 75 mcg PO ACBREAKFAST [facility] Methylprednisolone Sodium Succinate (Solu-Medrol) 40 mg IVPUSH Q8H [facility] Last Admin: 03/29/19 02:30 Dose: Not Given - Exam Quality Assessment: Supplemental Oxygen General: Alert Neck: Supple Lungs: Crackles, Rales Cardiovascular: Regular Rate GI/Abdominal Exam: Normal Bowel Sounds Sepsis Event Note - Evaluation Sepsis Screening Result: No Definite Risk - Focused Exam Vital Signs: Vital Signs Temp Pulse Resp BP BP Pulse Ox 03/30/19 08:01 137/69 03/30/19 04:00 93 L 03/30/19 00:00 98.3 F 75 16 117/53 L 89 L Date Exam was Performed: 03/30/19 Time Exam was Performed: 10:11 - Problem List & Annotations (1) Pneumonia SNOMED Code(s): 657626018 Code(s): J18.9 - PNEUMONIA, UNSPECIFIED ORGANISM Status: Acute Current Visit: Yes Qualifiers: Pneumonia type: due to unspecified organism (2) Asthma SNOMED Code(s): 031548524 Code(s): J45.909 - UNSPECIFIED ASTHMA, UNCOMPLICATED Status: Chronic Current Visit: No Qualifiers: Asthma severity: moderate (3) HTN (hypertension) SNOMED Code(s): 18231638 Code(s): I10 - ESSENTIAL (PRIMARY) HYPERTENSION Status: Chronic Current Visit: No Qualifiers: Hypertension type: essential hypertension (4) CAD (coronary artery disease) SNOMED Code(s): 88421144 Code(s): I25.10 - ATHSCL HEART DISEASE OF [place] CORONARY ARTERY W/O ANG PCTRS Status: Acute Current Visit: Yes (5) GERD (gastroesophageal reflux disease) SNOMED Code(s): 287651711 Code(s): K21.9 - GASTRO-ESOPHAGEAL REFLUX DISEASE WITHOUT ESOPHAGITIS Status: Acute Current Visit: No Qualifiers: Esophagitis presence: without esophagitis Qualified Code(s): K21.9 - Gastro -esophageal reflux disease without esophagitis (6) Upper back pain SNOMED Code(s): 361910830 Code(s): M54.9 - DORSALGIA, UNSPECIFIED Status: Acute Current Visit: No Annotation/Comment:: musculoskeletal (7) Hypothyroidism SNOMED Code(s): 65453151 Code(s): E03.9 - HYPOTHYROIDISM, UNSPECIFIED Status: Chronic Current Visit: No (8) COPD (chronic obstructive pulmonary disease) SNOMED Code(s): 21841216 Code(s): J44.9 - CHRONIC OBSTRUCTIVE PULMONARY DISEASE, UNSPECIFIED Status : Acute Current Visit: Yes - Problem List Review Problem List Initiated/Reviewed/Updated: Yes - My Orders Last 24 Hours: My Active Orders 03/29/19 10:00 methylPREDNISolone Sod Succ [Solu-MEDROL] 125 mg IVPUSH Q8H 03/29/19 10:54 Ondansetron [Zofran ODT] 4 mg PO Q4H PRN 03/29/19 11:00 Sodium Chloride 0.9% [Saline Flush] 10 ml FLUSH ASDIRECTED 03/29/19 13:21 Morphine 2 mg IVPUSH Q2H PRN 03/29/19 15:59 Albuterol/Ipratropium [DuoNeb 3.0-0.5 MG/3 ML] 3 ml NEB Q6H PRN diphenhydrAMINE [Benadryl] 25 mg PO BEDTIME PRN 03/29/19 16:00 RT Aerosol Therapy [RC] ASDIRECTED Levofloxacin/Dextrose 5%-Water [Levaquin in D5W 250 MG/50 ML] 50 ml IV Q24H 03/30/19 10:10 RT Incentive Spirometry [RC] Q4HWA diphenhydrAMINE [Benadryl] 50 mg PO BEDTIME PRN 03/30/19 10:15 Furosemide [Lasix] 20 mg IVPUSH BID 03/30/19 21:00 Budesonide/Formoterol Fumarate [Symbicort 160-4.5 Mcg Inhaler] 1 puff IH BID 03/31/19 05:11 BASIC METABOLIC PANEL,BMP [CHEM] AM CBC WITH AUTO DIFF [HEME] AM - Plan Plan:: SVNs,wean off O2. Possible discharge in 1-2 days
[2019-03-30] MEDS ORDERED: Formoterol/Mometasone 200-5 MCG 8.8 GM Inhaler IH SCH (10:30)
[2019-03-30] MEDS: Furosemide 20 MG/2 ML VIAL IVPUSH SCH ×2 (12:33→15:25)
[2019-03-30] MEDS: Sodium Chloride 0.9% 10 ML Syringe FLUSH SCH (12:34)
[2019-03-30] MEDS: Albuterol/Ipratropium 3.0-0.5 MG/3 ML Neb Soln NEB PRN (14:26)
[2019-03-30] MEDS: Levofloxacin/Dextrose 5%-Water 50 ML IV SCH (15:52)
[2019-03-30] MEDS: Enoxaparin 30 MG/0.3 ML Syringe SUBCUT SCH (15:57)
[2019-03-30] MEDS: diphenhydrAMINE 50 MG Cap PO PRN (22:03)
[2019-03-31] MEDS: methylPREDNISolone Sodium Succinate 125 MG/2 ML SDV IVPUSH SCH (01:01)
[2019-03-31] MEDS: Sodium Chloride 0.9% 10 ML Syringe FLUSH SCH ×2 (01:02→08:09)
[2019-03-31] MEDS: Levothyroxine 75 MCG Tab PO SCH (05:51)
[2019-03-31] MEDS: Isosorbide Mononitrate 60 MG Tab.ER PO SCH (08:02)
[2019-03-31] MEDS: hydrALAZINE 50 MG Tab PO SCH ×2 (08:03→20:07)
[2019-03-31] MEDS: Diltiazem 180 MG Cap.CD PO SCH ×2 (08:03→20:07)
[2019-03-31] MEDS: Furosemide 20 MG/2 ML VIAL IVPUSH SCH (08:07)
--- NOTE | 2019-03-31 08:14 | PCM.PN ---
- General Info Date of Service: 03/31/19 Subjective Update: Much better today. Mild to moderate shortness of breath on ambulation Functional Status: Reports: Pain Controlled - Review of Systems HEENT: Reports: No Symptoms Pulmonary: Reports: Shortness of Breath Cardiovascular: Reports: No Symptoms Gastrointestinal: Reports: No Symptoms - Patient Data Vitals - Most Recent: Last Vital Signs Temp 98.4 F 03/31/19 01:00 Pulse 69 03/31/19 01:00 Resp 17 03/31/19 01:00 BP 139/66 03/31/19 08:03 Pulse Ox 94 L 03/31/19 03:47 Weight - Most Recent: 67.585 kg I&O - Last 24 Hours: Intake & Output 03/30/19 03/31/19 03/31/19 22:59 06:59 14:59 Intake Total 800 250 Output Total 675 600 Balance 125 -350 Lab Results Last 24 Hours: Laboratory Results - last 24 hr 03/31/19 03/31/19 Range/Units 06:00 06:00 WBC 9.2 (4.5-12.0) X10-3/uL RBC 3.44 (3.23-5.20) x10(6)uL Hgb 10.5 L (11.5-15.5) g/dL Hct 31.0 (30.0-51.3) % MCV 90.2 (80-96) fL MCH 30.5 (27.7-33.6) pg MCHC 33.8 (32.2-35.4) g/dL RDW 14.0 (11.5-15.5) % Plt Count 389 H (125-369) X10(3)uL MPV 7.7 (7.4-10.4) fL Add Manual Diff Yes Neutrophils % (Manual) 96 H (46-82) % Lymphocytes % (Manual) 3 L (13-37) % Monocytes % (Manual) 1 L (4-12) % Sodium 140 (135-145) mmol/L Potassium 4.4 (3.5-5.3) mmol/L Chloride 102 (100-110) mmol/L Carbon Dioxide 28 (21-32) mmol/L BUN 44 H D (7-18) mg/dL Creatinine 1.7 H (0.55-1.02) mg/dL Est Cr Clr Drug Dosing 19.91 mL/min Estimated GFR (MDRD) 29 L (>60) BUN/Creatinine Ratio 25.9 H (9-20) Glucose 170 H (80-116) mg/dL Calcium 9.1 (8.6-10.2) mg/dL Van Results Last 24 Hours: Microbiology 03/28/19 15:09 Aerobic Blood Culture - Preliminary Blood - Venous - Lab Draw NO GROWTH AFTER 2 DAYS Anaerobic Blood Culture - Preliminary NO GROWTH AFTER 2 DAYS 03/28/19 15:00 Aerobic Blood Culture - Preliminary Blood - Venous NO GROWTH AFTER 2 DAYS Anaerobic Blood Culture - Preliminary NO GROWTH AFTER 2 DAYS Med Orders - Current: Current Medications Acetaminophen (Tylenol) 650 mg PO Q4H PRN PRN Reason: Pain (Mild 1-3)/fever Last Admin: 03/29/19 00:45 Dose: 650 mg Albuterol/Ipratropium (Duoneb 3.0-0.5 Mg/3 Ml) 3 ml NEB Q6H PRN PRN Reason: Wheezing Last Admin: 03/30/19 14:26 Dose: 3 ml Diltiazem HCl (Cardizem Cd) 180 mg PO BID [facility] Last Admin: 03/31/19 08:03 Dose: 180 mg Diphenhydramine HCl (Benadryl) 50 mg PO BEDTIME PRN PRN Reason: Insomnia Last Admin: 03/30/19 22:03 Dose: 50 mg Enoxaparin Sodium (Lovenox) 30 mg SUBCUT Q24H [facility] Last Admin: 03/30/19 15:57 Dose: 30 mg Hydralazine HCl (Apresoline) 50 mg PO BID [facility] Last Admin: 03/31/19 08:03 Dose: 50 mg Isosorbide Mononitrate (Imdur) 60 mg PO DAILY [facility] Last Admin: 03/31/19 08:02 Dose: 60 mg Levothyroxine Sodium (Levothyroxine) 75 mcg PO DAILY@0600 [facility] Last Admin: 03/31/19 05:51 Dose: 75 mcg Morphine Sulfate (Morphine) 2 mg IVPUSH Q2H PRN PRN Reason: Pain (Symbicort 1 Inh) (Own Med) 1 inh INH BID [facility] Last Admin: 03/31/19 08:03 Dose: 1 inh Ondansetron HCl (Zofran Odt) 4 mg PO Q4H PRN PRN Reason: Nausea/Vomiting Last Admin: 03/29/19 11:12 Dose: 4 mg Sodium Chloride (Saline Flush) 10 ml FLUSH ASDIRECTED [facility] Last Admin: 03/31/19 08:09 Dose: 10 ml Discontinued Medications Diphenhydramine HCl (Benadryl) 25 mg PO BEDTIME PRN PRN Reason: Allergies Last Admin: 03/29/19 20:54 Dose: 25 mg Furosemide (Lasix) 40 mg IVPUSH NOW ONE Stop: 03/29/19 09:53 Last Admin: 03/29/19 10:54 Dose: 40 mg Furosemide (Lasix) 20 mg IVPUSH BIDDIURETIC [facility] Last Admin: 03/31/19 08:07 Dose: 20 mg Sodium Chloride (Normal Saline) 1,000 mls @ 75 mls/hr IV ASDIRECTED [facility] Last Admin: 03/29/19 06:02 Dose: 75 mls/hr Azithromycin 250 mg/ Sodium (Chloride) 250 mls @ 250 mls/hr IV Q24H [facility] Levofloxacin/Dextrose 500 mg/ (Premix) 100 mls @ 100 mls/hr IV Q24H [facility] Last Admin: 03/28/19 16:15 Dose: 100 mls/hr Levofloxacin/Dextrose (Levaquin In D5w 250 Mg/50 Ml) 50 mls @ 50 mls/hr IV Q24H [facility] Last Admin: 03/30/19 15:52 Dose: 50 mls/hr Levothyroxine Sodium (Levothyroxine) 75 mcg PO ACBREAKFAST [facility] Methylprednisolone Sodium Succinate (Solu-Medrol) 40 mg IVPUSH Q8H [facility] Last Admin: 03/29/19 02:30 Dose: Not Given Methylprednisolone Sodium Succinate (Solu-Medrol) 125 mg IVPUSH Q8H [facility] Last Admin: 03/31/19 01:01 Dose: 125 mg Mometasone Furoate/Formoterol Fumar (Dulera 200-5 Mcg) 0 puff IH BID [facility] Last Admin: 03/30/19 15:16 Dose: Not Given - Exam Quality Assessment: Supplemental Oxygen General: Alert, Oriented Neck: Supple Lungs: Clear to Auscultation Cardiovascular: Regular Rate Sepsis Event Note - Evaluation Sepsis Screening Result: No Definite Risk - Focused Exam Vital Signs: Vital Signs Temp Pulse Resp BP BP Pulse Ox 03/31/19 08:03 139/66 03/31/19 03:47 94 L 03/31/19 01:00 98.4 F 69 17 130/65 94 L 03/30/19 20:15 144/76 H Date Exam was Performed: 03/31/19 Time Exam was Performed: 08:13 - Problem List & Annotations (1) Pneumonia SNOMED Code(s): 833913978 Code(s): J18.9 - PNEUMONIA, UNSPECIFIED ORGANISM Status: Acute Current Visit: Yes Qualifiers: Pneumonia type: due to unspecified organism (2) Asthma SNOMED Code(s): 745221792 Code(s): J45.909 - UNSPECIFIED ASTHMA, UNCOMPLICATED Status: Chronic Current Visit: No Qualifiers: Asthma severity: moderate (3) HTN (hypertension) SNOMED Code(s): 64466475 Code(s): I10 - ESSENTIAL (PRIMARY) HYPERTENSION Status: Chronic Current Visit: No Qualifiers: Hypertension type: essential hypertension (4) CAD (coronary artery disease) SNOMED Code(s): 33402008 Code(s): I25.10 - ATHSCL HEART DISEASE OF [place] CORONARY ARTERY W/O ANG PCTRS Status: Acute Current Visit: Yes (5) GERD (gastroesophageal reflux disease) SNOMED Code(s): 056869148 Code(s): K21.9 - GASTRO-ESOPHAGEAL REFLUX DISEASE WITHOUT ESOPHAGITIS Status: Acute Current Visit: No Qualifiers: Esophagitis presence: without esophagitis Qualified Code(s): K21.9 - Gastro -esophageal reflux disease without esophagitis (6) Upper back pain SNOMED Code(s): 252183347 Code(s): M54.9 - DORSALGIA, UNSPECIFIED Status: Acute Current Visit: No Annotation/Comment:: musculoskeletal (7) Hypothyroidism SNOMED Code(s): 10825368 Code(s): E03.9 - HYPOTHYROIDISM, UNSPECIFIED Status: Chronic Current Visit: No (8) COPD (chronic obstructive pulmonary disease) SNOMED Code(s): 07727650 Code(s): J44.9 - CHRONIC OBSTRUCTIVE PULMONARY DISEASE, UNSPECIFIED Status : Acute Current Visit: Yes - Problem List Review Problem List Initiated/Reviewed/Updated: Yes - My Orders Last 24 Hours: My Active Orders 03/30/19 10:10 RT Incentive Spirometry [RC] Q4HWA diphenhydrAMINE [Benadryl] 50 mg PO BEDTIME PRN 03/30/19 21:00 Symbicort 1 inh INH BID 03/31/19 08:15 levoFLOXacin [Levaquin] 250 mg PO Q24H 03/31/19 09:00 predniSONE 20 mg PO BID 03/31/19 14:00 Furosemide [Lasix] 20 mg PO BIDDIURETIC - Plan Plan:: SVNs,wean off O2. Change meds to oral.Possible discharge in 1-2 days
[2019-03-31] MEDS ORDERED: predniSONE 20 MG Tab PO SCH (09:00)
[2019-03-31] MEDS: Levofloxacin 250 MG Tab PO SCH (09:30)
[2019-03-31] MEDS: Albuterol/Ipratropium 3.0-0.5 MG/3 ML Neb Soln NEB PRN (11:51)
[2019-03-31] MEDS ORDERED: Furosemide 20 MG Tab PO SCH (14:00)
[2019-03-31] MEDS: Enoxaparin 30 MG/0.3 ML Syringe SUBCUT SCH (15:44)
[2019-03-31] MEDS: diphenhydrAMINE 50 MG Cap PO PRN (20:11)
[2019-04-01] MEDS: Levothyroxine 75 MCG Tab PO SCH (06:11)
[2019-04-01] MEDS: hydrALAZINE 50 MG Tab PO SCH (08:35)
[2019-04-01] MEDS: Isosorbide Mononitrate 60 MG Tab.ER PO SCH (08:35)
[2019-04-01] MEDS: Levofloxacin 250 MG Tab PO SCH (08:35)
[2019-04-01] MEDS: Diltiazem 180 MG Cap.CD PO SCH (08:35)
--- NOTE | 2019-04-01 11:50 | DISCH ---
DISCHARGE DATE: 04/01/2019 REASON FOR ADMISSION: 1. Community-acquired pneumonia. 2. COPD exacerbation. 3. CHF with preserved ejection fraction. 4. Back pain. 5. Coronary artery disease. 6. Atrial fibrillation. DISCHARGE DIAGNOSES: 1. Community-acquired pneumonia. 2. Chronic obstructive pulmonary disease exacerbation. 3. Congestive heart failure with preserved ejection fraction. 4. Back pain. 5. Coronary artery disease. 6. Atrial fibrillation. BRIEF HISTORY AND HOSPITAL COURSE: A 78-year-old female admitted with cough, fever, having tried outpatient treatment with Augmentin and azithromycin with no improvement. Levaquin was initiated. Solu-Medrol 125 mg IV was given. She needed oxygenation initially 3 L and down to 0.5 L at the time of discharge. X- ray done on the day of admission showed improved pleuritis. She would be discharged today to home on home oxygenation to use up to 1 L on exertion in a 24 hours' period. She will also complete a 10-day course of Levaquin, so a prescription sent for 5 more days. FOLLOWUP: She will see Dr. Reynolds in 1 week. I spent more than 35 minutes in the discharge and all her previous prescriptions were resumed. /[id number] [place]
== END 2019-04-01 14:56 | disposition home or self-care (01) | DRG 190 ==
LOC: FB.MS 12:08
PROVIDERS: ADMIT Family Medicine; ATTEND Family Medicine
DX: J44.0 Chronic obstructive pulmonary disease with (acute) lower respiratory infection (principal); J18.9 Pneumonia, unspecified organism; I50.30 Unspecified diastolic (congestive) heart failure; J44.1 Chronic obstructive pulmonary disease with (acute) exacerbation; I48.91 Unspecified atrial fibrillation; I25.10 Atherosclerotic heart disease of native coronary artery without angina pectoris; R09.1 Pleurisy; I11.0 Hypertensive heart disease with heart failure; G47.30 Sleep apnea, unspecified; M19.90 Unspecified osteoarthritis, unspecified site; E66.9 Obesity, unspecified; E03.9 Hypothyroidism, unspecified; M54.6 Pain in thoracic spine; Z91.030 Bee allergy status; Z88.8 Allergy status to other drugs, medicaments and biological substances; Z88.1 Allergy status to other antibiotic agents; Z88.2 Allergy status to sulfonamides; Z88.5 Allergy status to narcotic agent; Z79.890 Hormone replacement therapy; Z79.899 Other long term (current) drug therapy; I25.2 Old myocardial infarction; Z98.41 Cataract extraction status, right eye; Z98.42 Cataract extraction status, left eye; Z87.891 Personal history of nicotine dependence; Z68.29 Body mass index [BMI] 29.0-29.9, adult
CPT/HCPCS: 36415; 71046; 80048; 83735; 83880; 85025; 85651; 87040; 94640; 94760; A9270-GY; J1650; J1940; J1956; J2930; J7030; J7620-GY

== ENCOUNTER 2021-10-04 11:41 | Emergency (ER) | payer MEDICARE, BC ==
[2021-10-04] MEDS ORDERED: Aspirin 81 MG Tab.Chew PO STA (11:54)
[2021-10-04] MEDS ORDERED: Nitroglycerin 0.4 MG Tab.SL SL ONE (11:55)
[2021-10-04] MEDS ORDERED: methylPREDNISolone Sodium Succinate 125 MG/2 ML SDV IVPUSH ONE (12:14)
[2021-10-04] MEDS ORDERED: Morphine 4 MG/ML VIAL IVPUSH ONE (12:14)
[2021-10-04] MEDS ORDERED: Albuterol/Ipratropium 3.0-0.5 MG/3 ML Neb Soln NEB ONE (12:14)
== END 2021-10-04 13:30 | disposition home or self-care (01) ==
LOC: FB.ED 11:41
DX: J44.1 Chronic obstructive pulmonary disease with (acute) exacerbation (principal); I25.10 Atherosclerotic heart disease of native coronary artery without angina pectoris; E03.9 Hypothyroidism, unspecified; E66.9 Obesity, unspecified; Z68.25 Body mass index [BMI] 25.0-25.9, adult; Z91.030 Bee allergy status; Z88.5 Allergy status to narcotic agent; Z88.1 Allergy status to other antibiotic agents; Z91.048 Other nonmedicinal substance allergy status; Z88.2 Allergy status to sulfonamides; Z88.8 Allergy status to other drugs, medicaments and biological substances; Z95.1 Presence of aortocoronary bypass graft; Z87.891 Personal history of nicotine dependence
CPT/HCPCS: 36415; 83880; 84484; 85610; 85730; 96374; 96375; 99284; A9270; J2270; J2930; J7620

== ENCOUNTER 2022-06-10 11:07 | Emergency (ER) | payer MEDICARE, BC ==
[2022-06-10] MEDS ORDERED: Sodium Chloride 0.9% 10 ML Syringe FLUSH PRN (11:24)
[2022-06-10] MEDS ORDERED: Ondansetron 4 MG/2 ML SDV IVPUSH ONE ×2 (11:26→17:13)
[2022-06-10] MEDS ORDERED: Aspirin 81 MG Tab.Chew PO STA (11:30)
[2022-06-10] MEDS ORDERED: Nitroglycerin 0.4 MG Tab.SL SL PRN (11:30)
[2022-06-10 11:48] LABS: ESTIMATED GFR 41 mL/min (>60)
[2022-06-10] MEDS ORDERED: Morphine 4 MG/ML VIAL IVPUSH ONE ×2 (12:01→13:58)
[2022-06-10] MEDS ORDERED: Prochlorperazine 10 MG in Sodium Chloride 0.9% 50 ML IV ONE (12:01)
[2022-06-10] MEDS ORDERED: Sodium Chloride 0.9% 1,000 ML IV SCH (12:30)
[2022-06-10] MEDS ORDERED: Ketorolac 30 MG/ML SDV IVPUSH ONE (13:58)
[2022-06-10] MEDS ORDERED: hydrALAZINE 50 MG Tab PO STA (14:45)
[2022-06-10] MEDS ORDERED: Diltiazem 180 MG Cap.CD PO ONE (14:47)
[2022-06-10] MEDS ORDERED: Heparin Sodium 5,000 Units/ML Vial IVPUSH ONE (14:54)
[2022-06-10] MEDS ORDERED: Heparin Sodium/0.45% NaCl 500 ML IV SCH (15:00)
[2022-06-10] MEDS ORDERED: Heparin Sodium/0.45% NaCl 25,000 UNITS/500 ML BAG IV SCH (15:15)
[2022-06-10] MEDS ORDERED: Metoprolol Tartrate 25 MG Tab PO SCH (15:45)
== END 2022-06-10 17:32 ==
LOC: FB.ED 11:07
DX: J44.1 Chronic obstructive pulmonary disease with (acute) exacerbation (principal); I21.4 Non-ST elevation (NSTEMI) myocardial infarction; I25.10 Atherosclerotic heart disease of native coronary artery without angina pectoris; I11.0 Hypertensive heart disease with heart failure; I50.9 Heart failure, unspecified; E78.5 Hyperlipidemia, unspecified; E86.0 Dehydration; E03.9 Hypothyroidism, unspecified; E66.9 Obesity, unspecified; Z95.1 Presence of aortocoronary bypass graft; Z88.5 Allergy status to narcotic agent; Z88.1 Allergy status to other antibiotic agents; Z91.041 Radiographic dye allergy status; Z88.8 Allergy status to other drugs, medicaments and biological substances; Z88.2 Allergy status to sulfonamides; Z79.899 Other long term (current) drug therapy; Z68.25 Body mass index [BMI] 25.0-25.9, adult
CPT/HCPCS: 36415; 71045; 80053; 81001; 83605; 83880; 84484; 85025; 85379; 87040; 93005; 93010; 96374; 96375; 96376; 99285; 99285-25; A9270-GY; J1644; J1885; J2270; J2405; J3490; J7030